=== PATIENT | male | born 2000 | race Hispanic/Latino ===

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

== ENCOUNTER 2022-03-21 14:16 | Emergency (ER) | payer OTHER ==
[2022-03-21 15:45] LABS: SARS-COV-2 RT PCR NEGATIVE (NEGATIVE)
--- NOTE | 2022-03-21 15:49 | EDPHYS ---
Physician Documentation [facility] Name: Tobias Isabel Age: 21 yrs Sex: Male : 2000 Arrival Date: 03/21/2022 Time: 14:21 Bed IW1 Private MD: ED Physician Abhishek Gay HPI: 03/21 15:29 This 21 yrs old Male presents to ER via Ambulatory with complaints of COVID kb Symptoms. 15:29 The patient or guardian reports cough, that is intermittent, described as mild. Onset: kb The symptoms/episode began/occurred 3 day(s) ago. Severity of symptoms: At their worst the symptoms were mild, in the emergency department the symptoms are unchanged. Modifying factors: The symptoms are alleviated by nothing, the symptoms are aggravated by nothing. Associated signs and symptoms: Pertinent positives: rhinorrhea. The patient has not experienced similar symptoms in the past. The patient has not recently seen a physician. Pt reports cough and congestion for 3 days. 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 . Historical: - Allergies: 14:29 No Known Allergies; kb3 - Home Meds: 14:29 None [Active]; kb3 - PMHx: 14:29 ADD/ADHD; kb3 - PSHx: 14:29 None; kb3 - Immunization history:: Adult Immunizations up to date, Client reports having NOT received the Covid vaccine. Last tetanus immunization: up to date. - Social history:: Smoking status: Patient denies any tobacco usage or history of. Patient uses street drugs, marijuana. ROS: 15:27 Constitutional: Negative for fever, chills, and weight loss. kb 15:27 ENT: Positive for rhinorrhea, sinus congestion. 15:27 Respiratory: Positive for cough. 15:27 All other systems are negative. Exam: 15:28 Constitutional: This is a well developed, well nourished patient who is awake, alert, kb and in no acute distress. Head/Face: Normocephalic, atraumatic. ENT: Moist Mucous membranes Cardiovascular: Regular rate and rhythm with a normal S1 and S2. No gallops, murmurs, or rubs. No pulse deficits. Respiratory: Respirations even and unlabored. No increased work of breathing. Talking in full sentences Abdomen/GI: Soft, non-tender. No distention Skin: Warm, dry with normal turgor. Normal color. MS/ Extremity: Pulses equal, no cyanosis. Neurovascular intact. Full, normal range of motion. Neuro: Awake and alert, GCS 15, oriented to person, place, time, and situation. Moves all extremities. Normal gait. Psych: Awake, alert, with orientation to person, place and time. Behavior, mood, and affect are within normal limits. Vital Signs: 14:26 BP 123 / 74; Pulse 70; Resp 18; Temp 98.8; Weight 63.5 kg; Height 5 ft. 11 in. (180.34 kb3 cm); Pain 0/10; 14:26 Body Mass Index 19.53 (63.50 kg, 180.34 cm) kb3 MDM: 14:25 Patient medically screened. kb 15:28 Data reviewed: vital signs, nurses notes. Data interpreted: Pulse oximetry: on room air kb is 100 %. Interpretation: normal. 15:48 Counseling: I had a detailed discussion with the patient and/or guardian regarding: the kb historical points, exam findings, and any diagnostic results supporting the discharge/admit diagnosis, lab results, the need for outpatient follow up, a family practitioner, to return to the emergency department if symptoms worsen or persist or if there are any questions or concerns that arise at home. 03/21 14:28 Order name: COVID-19/FLU A+B/RSV; Complete Time: 15:48 kb Administered Medications: No medications were administered Disposition: 17:54 Co-signature as Attending Physician, Abhishek Gay MD. rn Disposition Summary: 03/21/22 15:48 Discharge Ordered Location: Home kb Condition: Stable kb Diagnosis - Acute upper respiratory infection, unspecified kb Followup: kb - With: Emergency Department - When: As needed - Reason: Worsening of condition Followup: kb - With: Private Physician - When: 2 - 3 days - Reason: Recheck today's complaints, Continuance of care, Re-evaluation by your physician Discharge Instructions: - Discharge Summary Sheet kb - Upper Respiratory Infection, Adult, [id number] kb - Viral Respiratory Infection, Ezdl-[id number] kb Forms: - Medication Reconciliation Form kb - Thank You Letter kb - Antibiotic Education kb - Prescription Opioid Use kb - Work release form kb3 Signatures: Dispatcher [employer] EDAdrianna Alvarado FNP-C GEM CARVER-Ckb Abhishek Gay MD MD rn Gemini Cheney RN RN kb3
--- NOTE | 2022-03-21 15:49 | ER ---
Nurse's Notes [facility] Name: Tobias Isabel Age: 21 yrs Sex: Male : 2000 Arrival Date: 03/21/2022 Time: 14:21 Bed IW1 Private MD: Diagnosis: Acute upper respiratory infection, unspecified Presentation: 03/21 14:26 Chief complaint: Patient states: Runny nose, congestion, cough x2-3 days. Coronavirus kb3 screen: Vaccine status: Patient reports being unvaccinated. Client denies travel out of the [place] in the last 14 days. Ebola Screen: Patient negative for fever greater than or equal to 101.5 degrees Fahrenheit, and additional compatible Ebola Virus Disease symptoms Patient denies exposure to infectious person. Patient denies travel to an Ebola-affected area in the 21 days before illness onset. Initial Sepsis Screen: Does the patient meet any 2 criteria? No. Patient's initial sepsis screen is negative. Does the patient have a suspected source of infection? No. Patient's initial sepsis screen is negative. Risk Assessment: Do you want to hurt yourself or someone else? Patient reports no desire to harm self or others. Onset of symptoms was March 19, 2022. 14:26 Method Of Arrival: Ambulatory kb3 14:26 Acuity: MYRNA 4 kb3 Triage Assessment: 14:29 General: Appears in no apparent distress. Behavior is calm, cooperative. Pain: Denies kb3 pain. Historical: - Allergies: 14:29 No Known Allergies; kb3 - Home Meds: 14:29 None [Active]; kb3 - PMHx: 14:29 ADD/ADHD; kb3 - PSHx: 14:29 None; kb3 - Immunization history:: Adult Immunizations up to date, Client reports having NOT received the Covid vaccine. Last tetanus immunization: up to date. - Social history:: Smoking status: Patient denies any tobacco usage or history of. Patient uses street drugs, marijuana. Screenin:30 [facility] ED Fall Risk Assessment (Adult) History of falling in the last 3 months, kb3 including since admission No falls in past 3 months (0 pts) Confusion or Disorientation No (0 pts) Intoxicated or Sedated No (0 pts) Impaired Gait No (0 pts) Mobility Assist Device Used No (0 pt) Altered Elimination No (0 pt) Score/Fall Risk Level 0 - 2 = Low Risk Oriented to surroundings, Maintained a safe environment, Educated pt \T\ family on fall prevention, incl call for assistance when getting out of bed, Assessed \T\ reinforced patient's understanding of fall precautions, Provided non-skid footwear, Hourly rounding (assess needs \T\ fall precautionary measures) done, Used ambulatory aids as needed (educated on \T\ assisted with), Used gait belt as appropriate. Abuse screen: Denies threats or abuse. Denies injuries from another. Nutritional screening: No deficits noted. Tuberculosis screening: No symptoms or risk factors identified. Assessment: 14:30 General: see triage note. kb3 14:30 Respiratory: Airway is patent Respiratory effort is even, unlabored, Breath sounds are kb3 clear bilaterally. Vital Signs: 14:26 BP 123 / 74; Pulse 70; Resp 18; Temp 98.8; Weight 63.5 kg; Height 5 ft. 11 in. (180.34 kb3 cm); Pain 0/10; 14:26 Body Mass Index 19.53 (63.50 kg, 180.34 cm) kb3 ED Course: 14:21 Patient arrived in ED. [email or web address] 14:25 Adrianna Alston FNP-C [facility]. kb 14:25 Abhishek Gay MD is Attending Physician. kb 14:28 Triage completed. kb3 14:29 Arm band placed on right wrist. kb3 14:30 Patient has correct armband on for positive identification. kb3 14:30 No provider procedures requiring assistance completed. Patient did not have IV access kb3 during this emergency room visit. 14:31 Columba Landry, RN is Primary Nurse. ph Administered Medications: No medications were administered Medication: 14:30 VIS not applicable for this client. kb3 Outcome: 15:48 Discharge ordered by . kb 16:05 Discharged to home ambulatory. kb3 16:05 Condition: stable 16:05 Discharge instructions given to patient, Instructed on discharge instructions, follow up and referral plans. medication usage, Demonstrated understanding of instructions, follow-up care, medications. 16:05 Patient left the ED. kb3 Signatures: Adrianna Alston FNP-C [employer] SALES REPRESENTATIVE-Columba Butcher RN RN ph Sonali Meade jj6 Shravan, Gemini, RN RN kb3
[2022-03-21 16:10] VITALS: BP 123/74; TEMP 98.8
== END 2022-03-21 16:05 | disposition home or self-care (01) ==
LOC: ER 14:16
DX: J06.9 Acute upper respiratory infection, unspecified (principal); Z20.822 Contact with and (suspected) exposure to COVID-19
CPT/HCPCS: 0241U; 99281

== ENCOUNTER 2022-03-30 13:10 | Emergency (ER) | payer OTHER ==
--- NOTE | 2022-03-30 14:04 | RAD REPORT ---
EXAM DESCRIPTION: RAD - Foot Left 3 View - 03/30/2022 1:51 pm CLINICAL HISTORY: PAIN COMPARISON: No comparisons FINDINGS: Soft tissue swelling affects the great toe. No evidence of fracture or dislocation.
[2022-03-30] MEDS ORDERED: IBUPROFEN 200 MG TAB PO ONE (14:09)
--- NOTE | 2022-03-30 14:28 | ER ---
Nurse's Notes [facility] Name: Tobias Isabel Age: 21 yrs Sex: Male : 2000 Arrival Date: 03/30/2022 Time: 13:12 Bed DIS3 Private MD: Diagnosis: Contusion of left foot;Pain in left foot Presentation: 03/30 13:18 Chief complaint: Patient states: a bar slammed on his left foot at work about 2 days iw ago , now it's swollen and painful. Coronavirus screen: At this time, the client does not indicate any symptoms associated with coronavirus-19. Ebola Screen: Patient negative for fever greater than or equal to 101.5 degrees Fahrenheit, and additional compatible Ebola Virus Disease symptoms Patient denies exposure to infectious person. Patient denies travel to an Ebola-affected area in the 21 days before illness onset. No symptoms or risks identified at this time. Initial Sepsis Screen: Does the patient meet any 2 criteria? No. Patient's initial sepsis screen is negative. Does the patient have a suspected source of infection? No. Patient's initial sepsis screen is negative. Risk Assessment: Do you want to hurt yourself or someone else? Patient reports no desire to harm self or others. Onset of symptoms was March 28, 2022. 13:18 Method Of Arrival: Ambulatory iw 13:18 Acuity: MYRNA 4 iw Historical: - Allergies: 13:19 No Known Allergies; iw - Home Meds: 13:19 None [Active]; iw - PMHx: 13:19 ADD/ADHD; iw - PSHx: 13:19 None; iw - Social history:: Smoking status: Patient reports the use of cigarette tobacco products, denies chronic smoking, but will smoke occasionally, Patient uses street drugs, marijuana. - Family history:: not pertinent. Screenin:42 [facility] ED Fall Risk Assessment (Adult) History of falling in the last 3 months, ss including since admission No falls in past 3 months (0 pts). Abuse screen: Denies threats or abuse. Denies injuries from another. Nutritional screening: No deficits noted. Tuberculosis screening: Never had TB. Assessment: 14:42 General: Appears in no apparent distress. comfortable, Pt is laughing with friend. ss Behavior is calm, cooperative. Pain: Quality of pain is described as tender, Pain began suddenly, Is continuous. Neuro: Level of Consciousness is awake, alert, obeys commands. Musculoskeletal: Circulation, motion, and sensation intact. Range of motion: intact in all extremities. Vital Signs: 13:18 BP 133 / 67; Pulse 71; Resp 16; Temp 98.2; Pulse Ox 100% on R/A; iw ED Course: 13:12 Patient arrived in ED. rg4 13:19 Triage completed. iw 13:19 Arm band placed on. iw 13:21 Collin Melendez MD is Attending Physician. [facility] 13:53 Foot Left 3 View XRAY In Process Unspecified. EDHI 14:02 Jailene Fernandez, RN is Primary Nurse. ss 14:26 Lizandro Davidson MD is Referral Physician. [facility] 14:40 No provider procedures requiring assistance completed. Patient did not have IV access ss during this emergency room visit. Ortho shoe applied to left foot. 14:42 Patient has correct armband on for positive identification. Bed in low position. ss Administered Medications: 14:15 Drug: Motrin (ibuprofen) 600 mg Route: PO; ss 14:35 Follow up: Response: No adverse reaction; Medication administered at discharge. ss Medication: 14:42 VIS not applicable for this client. ss Outcome: 14:27 Discharge ordered by . [facility] 14:40 Discharged to home ambulatory, with friend. 14:40 Condition: good 14:40 Discharge instructions given to patient, friend, Instructed on discharge instructions, follow up and referral plans. medication usage, Demonstrated understanding of instructions, follow-up care, medications, Prescriptions given X 1. 14:44 Patient left the ED. ss Signatures: Dispatcher [employer] EDHI Collin Melendez MD MD cha Williams, Irene, RN RN Jailene Fernandez, Irena Akers RN rg4
--- NOTE | 2022-03-30 14:28 | EDPHYS ---
Physician Documentation [facility] Name: Tobias Isabel Age: 21 yrs Sex: Male : 2000 Arrival Date: 03/30/2022 Time: 13:12 Bed DIS3 Private MD: ED Physician Collin Melendez HPI: 03/30 14:13 This 21 yrs old Male presents to ER via Ambulatory with complaints of Foot pranay Injury. 14:13 The patient presents with decreased range of motion, pain, that is acute. The pranay complaints affect the left foot. Context: The problem was sustained at work. Onset: The symptoms/episode began/occurred 1 day(s) ago. Modifying factors: The symptoms are alleviated by elevation of extremity, ice packs, the symptoms are aggravated by weight bearing, movement. Associated signs and symptoms: The patient has no apparent associated signs or symptoms. Severity of symptoms: At their worst the symptoms were mild, in the emergency department the symptoms are unchanged. The patient has not experienced similar symptoms in the past. Historical: - Allergies: 13:19 No Known Allergies; iw - Home Meds: 13:19 None [Active]; iw - PMHx: 13:19 ADD/ADHD; iw - PSHx: 13:19 None; iw - Social history:: Smoking status: Patient reports the use of cigarette tobacco products, denies chronic smoking, but will smoke occasionally, Patient uses street drugs, marijuana. - Family history:: not pertinent. ROS: 14:13 Constitutional: Negative for fever, chills, and weight loss, Eyes: Negative for injury, pranay pain, redness, and discharge, ENT: Negative for injury, pain, and discharge, Neck: Negative for injury, pain, and swelling, Cardiovascular: Negative for chest pain, palpitations, and edema, Respiratory: Negative for shortness of breath, cough, wheezing, and pleuritic chest pain, Abdomen/GI: Negative for abdominal pain, nausea, vomiting, diarrhea, and constipation, Back: Negative for injury and pain, : Negative for injury, bleeding, discharge, and swelling, Skin: Negative for injury, rash, and discoloration, Neuro: Negative for headache, weakness, numbness, tingling, and seizure, Psych: Negative for depression, anxiety, suicide ideation, homicidal ideation, and hallucinations, Allergy/Immunology: Negative for hives, rash, and allergies, Endocrine: Negative for neck swelling, polydipsia, polyuria, polyphagia, and marked weight changes, Hematologic/Lymphatic: Negative for swollen nodes, abnormal bleeding, and unusual bruising. 14:13 MS/extremity: Positive for decreased range of motion, pain, tenderness. Exam: 14:13 Constitutional: This is a well developed, well nourished patient who is awake, alert, pranay and in no acute distress. Head/Face: Normocephalic, atraumatic. Eyes: Pupils equal round and reactive to light, extra-ocular motions intact. Lids and lashes normal. Conjunctiva and sclera are non-icteric and not injected. Cornea within normal limits. Periorbital areas with no swelling, redness, or edema. ENT: Nares patent. No nasal discharge, no septal abnormalities noted. Tympanic membranes are normal and external auditory canals are clear. Oropharynx with no redness, swelling, or masses, exudates, or evidence of obstruction, uvula midline. Mucous membranes moist. Neck: Trachea midline, no thyromegaly or masses palpated, and no cervical lymphadenopathy. Supple, full range of motion without nuchal rigidity, or vertebral point tenderness. No Meningismus. Chest/axilla: Normal chest wall appearance and motion. Nontender with no deformity. No lesions are appreciated. Cardiovascular: Regular rate and rhythm with a normal S1 and S2. No gallops, murmurs, or rubs. Normal PMI, no JVD. No pulse deficits. Respiratory: Lungs have equal breath sounds bilaterally, clear to auscultation and percussion. No rales, rhonchi or wheezes noted. No increased work of breathing, no retractions or nasal flaring. Abdomen/GI: Soft, non-tender, with normal bowel sounds. No distension or tympany. No guarding or rebound. No evidence of tenderness throughout. Back: No spinal tenderness. No costovertebral tenderness. Full range of motion. Male : Normal genitalia with no discharge or lesions. Skin: Warm, dry with normal turgor. Normal color with no rashes, no lesions, and no evidence of cellulitis. Neuro: Awake and alert, GCS 15, oriented to person, place, time, and situation. Cranial nerves II-XII grossly intact. Motor strength 5/5 in all extremities. Sensory grossly intact. Cerebellar exam normal. Normal gait. Psych: Awake, alert, with orientation to person, place and time. Behavior, mood, and affect are within normal limits. 14:13 Musculoskeletal/extremity: ROM: intact in all extremities, full active range of motion, full passive range of motion, in the dorsum of left foot. Vital Signs: 13:18 BP 133 / 67; Pulse 71; Resp 16; Temp 98.2; Pulse Ox 100% on R/A; iw MDM: 13:21 Patient medically screened. [facility] 14:23 Differential diagnosis: fracture, sprain, arthritis, gout. Data reviewed: vital signs, [facility] nurses notes, radiologic studies, plain films. Consideration of Admission/Observation Patient was admitted/placed on observation. Escalation of care including admission/observation considered. Management of patient was discussed with the following: Primary Care Provider: PCP. I considered the following discharge prescriptions or medication management in the emergency department Medications were administered in the Emergency Department. See MAR. Independent interpretation of the following test(s) in the Emergency Department X-Ray: My interpretation is FOOT. Discussion of test interpretation with radiology: I had a discussion with radiology regarding a test interpretation. NO FX. Test considered but Not performed: MRI: CT/MRI. 03/30 13:21 Order name: Foot Left 3 View XRAY [facility] 03/30 13:21 Order name: Ice pack; Complete Time: 14:15 [facility] 03/30 14:13 Order name: Post-op shoe; Complete Time: 14:20 [facility] Administered Medications: 14:15 Drug: Motrin (ibuprofen) 600 mg Route: PO; 14:35 Follow up: Response: No adverse reaction; Medication administered at discharge. Disposition Summary: 03/30/22 14:27 Discharge Ordered Location: Home pranay Problem: new pranay Symptoms: have improved pranay Condition: Stable pranay Diagnosis - Contusion of left foot pranay - Pain in left foot pranay Followup: pranay - With: Private Physician - When: 2 - 3 days - Reason: Recheck today's complaints, Continuance of care, Re-evaluation by your physician Followup: pranay - With: Lizandro Davidson MD - When: 2 - 3 days - Reason: Recheck today's complaints, Continuance of care, Re-evaluation by your physician Discharge Instructions: - Musculoskeletal Pain pranay - How to Use Cold Therapy, [id number] pranay - Discharge Summary Sheet ss - Foot Pain pranay Forms: - Medication Reconciliation Form pranay - Work release form ss - Thank You Letter pranay - Antibiotic Education pranay - Prescription Opioid Use pranay Prescriptions: - Diclofenac Sodium 75 mg Oral tablet,delayed release (DR/EC) - take 1 tablet by ORAL route 2 times per day; 20 tablet; Refills: 0, Product pranay Selection Permitted Signatures: Dispatcher [employer] Collin Oneal MD MD cha Williams, Irene, RN RN Jailene Fernandez RN RN ss
[2022-03-30 15:17] VITALS: BP 133/67; TEMP 98.2; O2SAT 100
== END 2022-03-30 14:44 | disposition home or self-care (01) ==
LOC: ER 13:10
DX: S90.32XA Contusion of left foot, initial encounter (principal); F17.210 Nicotine dependence, cigarettes, uncomplicated
CPT/HCPCS: 99284

== ENCOUNTER 2022-07-23 16:17 | Emergency (ER) | payer OTHER ==
--- NOTE | 2022-07-23 16:31 | EDPHYS ---
Physician Documentation [facility] Name: Tobias Isabel Age: 22 yrs Sex: Male : 2000 Arrival Date: 07/23/2022 Time: 16:17 Bed DIS4 Private MD: ED Physician Abhishek Gay HPI: 07/23 16:25 This 22 yrs old Male presents to ER via Unassigned with complaints of Eye rn Swelling, Redness of Eye. 16:25 Onset: The symptoms/episode began/occurred today. Duration: the symptoms are rn continuous. Aggravated by nothing. Alleviated by nothing. Patient does not utilize any form of vision correction. Severity of symptoms: At their worst the symptoms were mild in the emergency department the symptoms are unchanged. The patient has not experienced similar symptoms in the past. Pt reports woke up with red left eye, now right eye a little red, left eye drainage. NO trauma. No possible foreign body, no sick contacts. No vision changes. No pain. . Historical: - Allergies: 16:43 No Known Allergies; iw - PMHx: 16:43 ADD/ADHD; iw - Family history:: not pertinent. - Hospitalizations: : No recent hospitalization is reported. ROS: 16:25 Constitutional: Negative for fever, chills, and weight loss, Eyes: Negative for injury, rn + for redness and drainage Cardiovascular: Negative for chest pain, palpitations, and edema, Skin: Negative for injury, rash, and discoloration, Neuro: Negative for headache, weakness, numbness, tingling, and seizure. Exam: 16:25 Constitutional: This is a well developed, well nourished patient who is awake, alert, rn and in no acute distress. Head/Face: Normocephalic, atraumatic. Eyes: + bilateral conjunctival erythema and clear drainage, no hypopyon, no hyphema, no foreign body identified with lids everted as well. Vital Signs: 16:44 BP 128 / 60; Pulse 89; Resp 16; Temp 98; Pulse Ox 98% on R/A; iw MDM: 16:20 Patient medically screened. rn 16:25 Differential diagnosis: Data reviewed: vital signs, nurses notes, and as a result, I rn will discharge patient. Counseling: I had a detailed discussion with the patient and/or guardian regarding: the historical points, exam findings, and any diagnostic results supporting the discharge/admit diagnosis, the need for outpatient follow up, to return to the emergency department if symptoms worsen or persist or if there are any questions or concerns that arise at home. Special discussion: I discussed with the patient/guardian in detail that at this point there is no indication for admission to the hospital. It is understood, however, that if the symptoms persist or worsen the patient needs to return immediately for re-evaluation. Administered Medications: No medications were administered Disposition Summary: 07/23/22 16:30 Discharge Ordered Location: Home rn Problem: new rn Symptoms: are unchanged rn Condition: Stable rn Diagnosis - Unspecified conjunctivitis rn Followup: rn - With: Private Physician - When: As needed - Reason: Recheck today's complaints, Re-evaluation by your physician Discharge Instructions: - Discharge Summary Sheet rn - Bacterial Conjunctivitis, Adult rn Forms: - Medication Reconciliation Form rn - Thank You Letter rn - Antibiotic ornamenter hand - Prescription Opioid Use rn - Work release form eb Prescriptions: - Vigamox 0.5 % Ophthalmic Drops - instill 1 drop by OPHTHALMIC route every 8 hours for 7 days; 5 milliliter; rn Refills: 0, Product Selection Permitted Signatures: Roslyn Francois RN RN iw Abhishek Gay MD MD heater furnace: (The following items were deleted from the chart) 16:28 16:25 Constitutional: Negative for fever, chills, and weight loss, Eyes: Negative for rn injury, + for redness and drainage Cardiovascular: Negative for chest pain, palpitations, and edema, Neuro: Negative for headache, weakness, numbness, tingling, and seizure, rn
--- NOTE | 2022-07-23 17:16 | ER ---
Nurse's Notes [facility] Name: Tobias Isabel Age: 22 yrs Sex: Male : 2000 Arrival Date: 07/23/2022 Time: 16:17 Bed DIS4 Private MD: Diagnosis: Unspecified conjunctivitis Presentation: 07/23 16:42 Chief complaint: Patient states: viviana eye redness, itching since yesterday. Coronavirus iw screen: At this time, the client does not indicate any symptoms associated with coronavirus-19. Ebola Screen: Patient negative for fever greater than or equal to 101.5 degrees Fahrenheit, and additional compatible Ebola Virus Disease symptoms Patient denies exposure to infectious person. Patient denies travel to an Ebola-affected area in the 21 days before illness onset. No symptoms or risks identified at this time. Initial Sepsis Screen: Does the patient meet any 2 criteria? No. Patient's initial sepsis screen is negative. Does the patient have a suspected source of infection? No. Patient's initial sepsis screen is negative. Risk Assessment: Do you want to hurt yourself or someone else? Patient reports no desire to harm self or others. Onset of symptoms was July 22, 2022. 16:42 Method Of Arrival: Ambulatory iw 16:42 Acuity: MYRNA 4 iw Historical: - Allergies: 16:43 No Known Allergies; iw - PMHx: 16:43 ADD/ADHD; iw - Family history:: not pertinent. - Hospitalizations: : No recent hospitalization is reported. Vital Signs: 16:44 BP 128 / 60; Pulse 89; Resp 16; Temp 98; Pulse Ox 98% on R/A; iw ED Course: 16:18 Patient arrived in ED. am2 16:20 Abhishek Gay MD is Attending Physician. rn 16:42 Roslyn Francois, DIMITRI is Primary Nurse. iw 16:43 Triage completed. iw 16:43 Arm band placed on. iw Administered Medications: No medications were administered Outcome: 16:30 Discharge ordered by MD. rn 17:16 Discharged to home ambulatory. iw 17:16 Condition: good 17:16 Discharge instructions given to patient, Instructed on discharge instructions, follow up and referral plans. medication usage, Demonstrated understanding of instructions, follow-up care, medications, Prescriptions given X 1. 17:16 Patient left the ED. iw Signatures: Roslyn Francois DIMITRI RN Abhishek Khan MD MD rn Moreno, Amanda am2
[2022-07-23 17:33] VITALS: BP 128/60; TEMP 98; O2SAT 98
== END 2022-07-23 17:16 | disposition home or self-care (01) ==
LOC: ER 16:17
DX: H10.9 Unspecified conjunctivitis (principal)
CPT/HCPCS: 99283

== ENCOUNTER 2022-11-10 15:16 | Emergency (ER) | payer OTHER ==
--- OUTSIDE RECORDS SUMMARY | 2022-11-10 15:20 | XMS REPORT | Continuity of Care Document ---
:2000 Author Organization [facility] t Address [address] [place] [address] [place] [id number] Care Team Providers Name Role Phone TANK MICHAEL Primary Care Physician Unavailable NATHALIE KOWALSKI Attending Clinician Unavailable Nathalie Hernandez Attending Clinician JUAN LUIS MOE Attending Clinician Unavailable Juan Luis Moe MD Attending Clinician GARY LEVIN Attending Clinician Unavailable Gary Levin MD Attending Clinician LUCAS PURI Attending Clinician Unavailable Lucas Lobo Attending Clinician NATHALIE KOWALSKI Admitting Clinician Unavailable GARY LEVIN Admitting Clinician Unavailable Payers Payer Name Policy Type Policy Number Effective Date Expiration Date S [place] [employer] [id number] 2022 KIDS 00:00:00 Problems Condition Condition Condition Status Onset Resolution Last Treating Co mments Source Name Details Category Date Date Treatment Clinician Date Attention Attention Disease Active Uni vers deficit deficit 4-22 ity of disorder disorder 00:00: [place] (ADD), (ADD), 00 Medical child, child, Branch with with hyperactiv hyperactiv ity ity Depression Depression Disease Active 2014-03 U nivers 2-18 ity of 00:00: [place] 00 Medical Branch Allergies, Adverse Reactions, Alerts Allergy Allergy Status Severity Reaction(s) Onset Inactive Treating Comm ents Source Name Type Date Date Clinician NO KNOWN Drug Active Univers ALLERGIE Class ity of S [facility] Social History Social Habit Start Date Stop Date Quantity Comments Source Alcohol intake 2022-08-29 2022-08-29 Current University of 00:00:00 00:00:00 non-drinker of [facility] alcohol (finding) Branch Exposure to 2022-07-29 2022-08-08 Not sure University SARS-CoV-2 00:00:00 21:15:00 [facility] (event) Branch Tobacco use and 2013-01-06 2013-01-06 Smokeless tobacco Un iversity of exposure 00:00:00 00:00:00 non-user [facility] Tobacco Comment 2013-01-06 2013-01-06 Denies smoking Unive rsity of 00:00:00 00:00:00 exposure [facility] Sex Assigned At [birth year] Universit y of 00:00:00 00:00:00 [facility] Smoking Status Start Date Stop Date Source Never smoked tobacco [facility] Medications Ordered Filled Start Stop Current Ordering Indication Dosage Frequency Signature Comments Components Source Medication Medication Date Date Medication? Clinician (SIG) Name Name albuterol Yes [id number] 2{puff} Inhale 2 Univers 90 6-10 Puffs ity of mcg/actuati 00:00: every 4 [place] on inhaler 00 (four) Medical hours as Branch needed for Wheezing or Shortness of Breath. benzonatate Yes [id number] 100mg Take 1 Univers 100 mg 6-10 capsule by ity of capsule 00:00: mouth 3 [place] 00 (three) Medical times Branch daily as needed for Cough. azithromyci Yes [id number] 250mg Take 1 Univers n 250 mg 6-10 tablet by ity of tablet 00:00: mouth in [place] 00 the Medical morning. Branch methylPREDN Yes [id number] Take by Univers ISolone 6-10 mouth ity of (MEDROL, 00:00: SEE-INSTRU [place] as KARY,) 4 mg 00 CTIONS. Medica l tablets follow Branch package directions simethicone Yes 80mg 80 mg, Univ ers (GAS RELIEF - Oral, ity of (SIMETHICON 14:00: [place] 00 First dose Medical chewable on Sun Branch tablet 80 08/09/22 at mg 0900, Until Discontinu ed, [place] dicyclomine 2022- No 20mg 20 mg, Uni vers (BENTYL) 08-09 Oral, ity of tablet 20 05:00: 04:59 ONCE, 1 [place] mg [place] :00 dose, On Medical Sun Branch 08/09/22 at 0000, [place] iopamidol 2022-0 2022- No [id number] 100mL 100 mL, Univers (ISOVUE 08-09 Intravenou ity o f 370-500 mL) 04:45: 04:45 s, ONCE, 1 [place] injection 00 :00 dose, On Medica l 100 mL Sat Branch 08/08/22 at 2345, Routine maalox:diph 2022- No 15mL 15 mL, Uni vers enhydrAMINE 08-09 Oral, ity of :lidocaine 04:30: 04:25 ONCE, 1 [place] as 2 % viscous 00 :00 dose, On Medi jos 1:1:1 Sat Branch (FIRST-MOUT 08/08/22 at [facility]) 2330, [place] oral suspension 15 mL NaCl 0.9% 2022- No 1000mL at 999 Uni vers (NS) bolus 08-09 mL/hr, ity of infusion 03:45: 04:59 1,000 mL, [place] as 1,000 mL 00 :00 IV Medical Infusion, Branch ONCE, 1 dose, On 08/08/22 at 2245, STAT ondansetron 2022- No 4mg 4 mg, Slow Univers (ZOFRAN 08-09 IV Push, ity of (PF)) 03:45: 03:32 ONCE, 1 [place] injection 4 00 :00 dose, On Medi jos mg Sat Branch 08/08/22 at 2245, [place] simethicone 2022-0 Yes [id number] 80mg Take 1 Univers 80 mg 5-20 tablet by ity of chewable 00:00: mouth [place] tablet 00 after Medical meals and Branch at bedtime. dicyclomine 2022-0 Yes [id number] 20mg Take 1 Univers 20 mg 5-20 tablet by ity of tablet 00:00: mouth 4 [place] 00 (four) Medical times Branch daily. ondansetron 2023-0 Yes [id number] 4mg Take 1 Univers 4 mg 5-20 tablet by ity of disintegrat 00:00: mouth [place] ing tablet 00 every 4 Medica l (four) Branch hours as needed for Nausea and Vomiting (N/V). famotidine 2023-0 Yes [id number] 20mg Take 1 U nivers 20 mg 5-20 tablet by ity of tablet 00:00: mouth in [place] 00 the Medical morning Branch and 1 tablet in the evening. simethicone 2023-0 Yes [id number] 80mg Take 1 Univers 80 mg 5-20 tablet by ity of chewable 00:00: mouth [place] tablet 00 after Medical meals and Branch at bedtime. dicyclomine 2023-0 Yes [id number] 20mg Take 1 Univers 20 mg 5-20 tablet by ity of tablet 00:00: mouth 4 [place] 00 (four) Medical times Branch daily. ondansetron 2023-0 Yes [id number] 4mg Take 1 Univers 4 mg 5-20 tablet by ity of disintegrat 00:00: mouth [place] ing tablet 00 every 4 Medica l (four) Branch hours as needed for Nausea and Vomiting (N/V). famotidine 2023-0 Yes [id number] 20mg Take 1 U nivers 20 mg 5-20 tablet by ity of tablet 00:00: mouth in [place] the Medical morning Branch and 1 tablet in the evening. simethicone 2023-0 Yes [id number] 80mg Take 1 Univers 80 mg 5-20 tablet by ity of chewable 00:00: mouth [place] tablet 00 after Medical meals and Branch at bedtime. dicyclomine 2023-0 Yes [id number] 20mg Take 1 Univers 20 mg 5-20 tablet by ity of tablet 00:00: mouth 4 [place] 00 (four) Medical times Branch daily. ondansetron 2023-0 Yes [id number] 4mg Take 1 Univers 4 mg 5-20 tablet by ity of disintegrat 00:00: mouth [place] ing tablet 00 every 4 Medica l (four) Branch hours as needed for Nausea and Vomiting (N/V). famotidine 2023-0 Yes [id number] 20mg Take 1 U nivers 20 mg 5-20 tablet by ity of tablet 00:00: mouth in [place] 00 the Medical morning Branch and 1 tablet in the evening. guanFACINE 2017-0 Yes 2mg Take 1 Unive rs ER (INTUNIV 4-15 tablet by ity of ER) 2 mg 00:00: mouth at [place] tablet 00 bedtime. Medical Branch guanFACINE 2017-0 Yes 2mg Take 1 Unive rs ER (INTUNIV 4-15 tablet by ity of ER) 2 mg 00:00: mouth at [place] tablet 00 bedtime. Medical Branch guanFACINE 2016-0 Yes 2mg Take 1 Unive rs ER (INTUNIV 4-15 tablet by ity of ER) 2 mg 00:00: mouth at [place] tablet 00 bedtime. Medical Branch guanFACINE 0 Yes 2mg Take 1 Unive rs ER (INTUNIV 4-15 tablet by ity of ER) 2 mg 00:00: mouth at [place] tablet 00 bedtime. Medical Branch lisdexamfet 2016- Yes 40mg Take 1 Univ ers amine 4-13 capsule by ity of (VYVANSE) 00:00: mouth [place] 40 mg 00 every Medical capsule morning. Branch lisdexamfet 2016-0 Yes 40mg Take 1 Univ ers amine 4-13 capsule by ity of (VYVANSE) 00:00: mouth [place] 40 mg 00 every Medical capsule morning. Branch lisdexamfet 2016-0 Yes 40mg Take 1 Univ ers amine 4-13 capsule by ity of (VYVANSE) 00:00: mouth [place] 40 mg 00 every Medical capsule morning. Branch lisdexamfet 0 Yes 40mg Take 1 Univ ers amine 4-13 capsule by ity of (VYVANSE) 00:00: mouth [place] 40 mg 00 every Medical capsule morning. Branch FLUoxetine Yes [id number] 20mg Take 1 U nivers (PROZAC) 20 8-31 tablet by ity of mg tablet 00:00: mouth [place] 00 daily. Medical Branch FLUoxetine 2015-0 Yes [id number] 20mg Take 1 U nivers (PROZAC) 20 8-31 tablet by ity of mg tablet 00:00: mouth [place] 00 daily. Medical Branch FLUoxetine 0 Yes [id number] 20mg Take 1 U nivers (PROZAC) 20 8-31 tablet by ity of mg tablet 00:00: mouth [place] 00 daily. Medical Branch FLUoxetine Yes [id number] 20mg Take 1 U nivers (PROZAC) 20 8-31 tablet by ity of mg tablet 00:00: mouth [place] [id number] daily. [facility] Immunizations Ordered Immunization Filled Immunization Date Status Commen ts Source Name Name HPV9 2016-04-02 Completed University of 00:00:00 [facility] Influenza Virus 2016-04-02 Completed Universit y of Vaccine Quad IM 3+ 00:00:00 [facility] HPV9 2016-04-02 Completed University of 00:00:00 [facility] Influenza Virus 2016-04-02 Completed Universit y of Vaccine Quad IM 3+ 00:00:00 [facility] HPV9 2016-04-02 Completed University of 00:00:00 [facility] Influenza Virus 2016-04-02 Completed Universit y of Vaccine Quad IM 3+ 00:00:00 [facility] HPV9 2016-04-02 Completed University of 00:00:00 [facility] Influenza Virus 2016-04-02 Completed Universit y of Vaccine Quad IM 3+ 00:00:00 [facility] HPV9 2015-11-20 Completed University of 00:00:00 [facility] HPV9 2015-11-20 Completed University of 00:00:00 [facility] HPV9 2015-11-20 Completed University of 00:00:00 [facility] HPV9 2015-11-20 Completed University of 00:00:00 [facility] HPV9 2015-09-19 Completed University of 00:00:00 [facility] HPV9 2015-09-19 Completed University of 00:00:00 [facility] HPV9 2015-09-19 Completed University of 00:00:00 [facility] HPV9 2015-09-19 Completed University of 00:00:00 [facility] Meningococcal 2014-11-06 Completed University of Vaccine 00:00:00 [facility] TDAP 2014-11-06 Completed University of 00:00:00 [facility] Meningococcal 2014-11-06 Completed University of Vaccine 00:00:00 [facility] TDAP 2014-11-06 Completed University of 00:00:00 [facility] Meningococcal 2014-11-06 Completed University of Vaccine 00:00:00 [facility] TDAP 2014-11-06 Completed University of 00:00:00 [facility] Meningococcal 2014-11-06 Completed University of Vaccine 00:00:00 [facility] TDAP 2014-11-06 Completed University of 00:00:00 [facility] Influenza Virus 2014-05-21 Completed Universit y of Vaccine Quad IM 3+ 00:00:00 [facility] Influenza Virus 2014-05-21 Completed Universit y of Vaccine Quad IM 3+ 00:00:00 [facility] Influenza Virus 2014-05-21 Completed Universit y of Vaccine Quad IM 3+ 00:00:00 [facility] Influenza Virus 2014-05-21 Completed Universit y of Vaccine Quad IM 3+ 00:00:00 [facility] Influenza Virus 2013-01-06 Completed Universit y of Vaccine (3+ yrs) 00:00:00 [facility] [facility] Influenza Virus 2013-01-06 Completed Universit y of Vaccine (3+ yrs) 00:00:00 [facility] [facility] Influenza Virus 2013-01-06 Completed Universit y of Vaccine (3+ yrs) 00:00:00 [facility] Influenza Virus 2013-01-06 Completed Universit y of Vaccine (3+ yrs) 00:00:00 [facility] Influenza Virus 2011-12-24 Completed Universit y of Vaccine 00:00:00 [facility] Influenza Virus 2011-12-24 Completed Universit y of Vaccine 00:00:00 [facility] Influenza Virus 2011-12-24 Completed Universit y of Vaccine 00:00:00 [facility] Influenza Virus 2011-12-24 Completed Universit y of Vaccine 00:00:00 [facility] Influenza Virus 2011-01-08 Completed Universit y of Vaccine 00:00:00 [facility] Influenza Virus 2011-01-08 Completed Universit y of Vaccine 00:00:00 [facility] Influenza Virus 2011-01-08 Completed Universit y of Vaccine 00:00:00 [facility] Influenza Virus 2011-01-08 Completed Universit y of Vaccine 00:00:00 [facility] Influenza Virus 2009-12-13 Completed Universit y of Vaccine 00:00:00 [facility] Influenza Virus 2009-12-13 Completed Universit y of Vaccine 00:00:00 [facility] Influenza Virus 2009-12-13 Completed Universit y of Vaccine 00:00:00 [facility] Influenza Virus 2009-12-13 Completed Universit y of Vaccine 00:00:00 [facility] Influenza Virus 2009-04-26 Completed Universit y of Vaccine 00:00:00 [facility] H1n1 Vaccine 2009-04-26 Completed University o f 00:00:00 [facility] Influenza Virus 2009-04-26 Completed Universit y of Vaccine 00:00:00 [facility] H1n1 Vaccine 2009-04-26 Completed University o f 00:00:00 [facility] Influenza Virus 2009-04-26 Completed Universit y of Vaccine 00:00:00 [facility] Influenza Virus 2009-04-26 Completed Universit y of Vaccine 00:00:00 [facility] H1n1 Vaccine 2009-04-26 Completed University o f 00:00:00 [facility] H1n1 Vaccine 2009-04-26 Completed University o f 00:00:00 [facility] Influenza Virus 2009-02-11 Completed Universit y of Vaccine 00:00:00 [facility] H1n1 Vaccine 2009-02-11 Completed University o f 00:00:00 [facility] Influenza Virus 2009-02-11 Completed Universit y of Vaccine 00:00:00 [facility] H1n1 Vaccine 2009-02-11 Completed University o f 00:00:00 [facility] Influenza Virus 2009-02-11 Completed Universit y of Vaccine 00:00:00 [facility] Influenza Virus 2009-02-11 Completed Universit y of Vaccine 00:00:00 [facility] H1n1 Vaccine 2009-02-11 Completed University o f 00:00:00 [facility] H1n1 Vaccine 2009-02-11 Completed University o f 00:00:00 [facility] HEPATITIS A 2007-01-04 Completed University of 00:00:00 [facility] DTAP 2007-01-04 Completed University of 00:00:00 [facility] MMR 2007-01-04 Completed University of 00:00:00 [facility] Pneumococcal 7 2007-01-04 Completed University of Conjugate, PCV7 00:00:00 [facility] ical (Prevnar7) Branch Polio (IPV/OPV) 2007-01-04 Completed Universit y of 00:00:00 [facility] Varicella 2007-01-04 Completed University of (varivax)(chicken 00:00:00 [facility] edical pox) Branch HEPATITIS A 2007-01-04 Completed University of 00:00:00 [facility] DTAP 2007-01-04 Completed University of 00:00:00 [facility] MMR 2007-01-04 Completed University of 00:00:00 [facility] Pneumococcal 7 2007-01-04 Completed University of Conjugate, PCV7 00:00:00 [place] Med ical (Prevnar7) Branch Polio (IPV/OPV) 2007-01-04 Completed Universit y of 00:00:00 [facility] Varicella 2007-01-04 Completed University of (varivax)(chicken 00:00:00 [place] M edical pox) Branch HEPATITIS A 2007-01-04 Completed University of 00:00:00 [facility] HEPATITIS A 2007-01-04 Completed University of 00:00:00 [facility] DTAP 2007-01-04 Completed University of 00:00:00 [facility] MMR 2007-01-04 Completed University of 00:00:00 [facility] Pneumococcal 7 2007-01-04 Completed University of Conjugate, PCV7 00:00:00 [place] Med ical (Prevnar7) Branch Polio (IPV/OPV) 2007-01-04 Completed Universit y of 00:00:00 [facility] Varicella 2007-01-04 Completed University of (varivax)(chicken 00:00:00 [facility] edical pox) Branch DTAP 2007-01-04 Completed University of 00:00:00 [facility] MMR 2007-01-04 Completed University of 00:00:00 [facility] Pneumococcal 7 2007-01-04 Completed University of Conjugate, PCV7 00:00:00 [place] Med ical (Prevnar7) Branch Polio (IPV/OPV) 2007-01-04 Completed Universit y of 00:00:00 [facility] Varicella 2007-01-04 Completed University of (varivax)(chicken 00:00:00 [facility] edical pox) Branch DTAP 2003-09-19 Completed University of 00:00:00 [facility] HIB 4 Dose Schedule 2003-09-19 Completed Unive rsity of 00:00:00 [facility] DTAP 2003-09-19 Completed University of 00:00:00 [facility] HIB 4 Dose Schedule 2003-09-19 Completed Unive rsity of 00:00:00 [facility] DTAP 2003-09-19 Completed University of 00:00:00 [facility] HIB 4 Dose Schedule 2003-09-19 Completed Unive rsity of 00:00:00 [facility] DTAP 2003-09-19 Completed University of 00:00:00 [facility] HIB 4 Dose Schedule 2003-09-19 Completed Unive rsity of 00:00:00 [facility] DTAP 2003-06-13 Completed University of 00:00:00 [facility] HIB 4 Dose Schedule 2003-06-13 Completed Unive rsity of 00:00:00 [facility] MMR 2003-06-13 Completed University of 00:00:00 [facility] Polio (IPV/OPV) 2003-06-13 Completed Universit y of 00:00:00 [facility] Varicella 2003-06-13 Completed University of (varivax)(chicken 00:00:00 [place] M edical pox) Branch DTAP 2003-06-13 Completed University of 00:00:00 [facility] HIB 4 Dose Schedule 2003-06-13 Completed Unive rsity of 00:00:00 [facility] MMR 2003-06-13 Completed University of 00:00:00 [facility] Polio (IPV/OPV) 2003-06-13 Completed Universit y of 00:00:00 [facility] Varicella 2003-06-13 Completed University of (varivax)(chicken 00:00:00 [place] M edical pox) Branch DTAP 2003-06-13 Completed University of 00:00:00 [facility] HIB 4 Dose Schedule 2003-06-13 Completed Unive rsity of 00:00:00 [facility] MMR 2003-06-13 Completed University of 00:00:00 [facility] Polio (IPV/OPV) 2003-06-13 Completed Universit y of 00:00:00 [facility] Varicella 2003-06-13 Completed University of (varivax)(chicken 00:00:00 [place] M edical pox) Branch DTAP 2003-06-13 Completed University of 00:00:00 [facility] HIB 4 Dose Schedule 2003-06-13 Completed Unive rsity of 00:00:00 [facility] MMR 2003-06-13 Completed University of 00:00:00 [facility] Polio (IPV/OPV) 2003-06-13 Completed Universit y of 00:00:00 [facility] Varicella 2003-06-13 Completed University of (varivax)(chicken 00:00:00 [place] M edical pox) Branch DTAP 2002 Completed University of 00:00:00 [facility] HIB 4 Dose Schedule 2002 Completed Unive rsity of 00:00:00 [facility] Hep B, Adol or Pedi 2002 Completed Unive rsity of Dosage 00:00:00 [facility] Pneumococcal 7 2002 Completed University of Conjugate, PCV7 00:00:00 [place] Med ical (Prevnar7) Branch Polio (IPV/OPV) 2002 Completed Universit y of 00:00:00 [facility] DTAP 2002 Completed University of 00:00:00 [facility] HIB 4 Dose Schedule 2002 Completed Unive rsity of 00:00:00 [facility] Hep B, Adol or Pedi 2002 Completed Unive rsity of Dosage 00:00:00 [facility] Pneumococcal 7 2002 Completed University of Conjugate, PCV7 00:00:00 [place] Med ical (Prevnar7) Branch Polio (IPV/OPV) 2002 Completed Universit y of 00:00:00 [facility] DTAP 2002 Completed University of 00:00:00 [facility] HIB 4 Dose Schedule 2002 Completed Unive rsity of 00:00:00 [facility] Hep B, Adol or Pedi 2002 Completed Unive rsity of Dosage 00:00:00 [facility] Pneumococcal 7 2002 Completed University of Conjugate, PCV7 00:00:00 [place] Med ical (Prevnar7) Branch Polio (IPV/OPV) 2002 Completed Universit y of 00:00:00 [facility] DTAP 2002 Completed University of 00:00:00 [facility] HIB 4 Dose Schedule 2002 Completed Unive rsity of 00:00:00 [facility] Hep B, Adol or Pedi 2002 Completed Unive rsity of Dosage 00:00:00 [facility] Pneumococcal 7 2002 Completed University of Conjugate, PCV7 00:00:00 [place] Med ical (Prevnar7) Branch Polio (IPV/OPV) 2002 Completed Universit y of 00:00:00 [facility] DTAP 2002 Completed University of 00:00:00 [facility] HIB 4 Dose Schedule 2002 Completed Unive rsity of 00:00:00 [facility] Hep B, Adol or Pedi 2002 Completed Unive rsity of Dosage 00:00:00 [facility] Pneumococcal 7 2002 Completed University of Conjugate, PCV7 00:00:00 [place] Med ical (Prevnar7) Branch DTAP 2002 Completed University of 00:00:00 [facility] HIB 4 Dose Schedule 2002 Completed Unive rsity of 00:00:00 [facility] Hep B, Adol or Pedi 2002 Completed Unive rsity of Dosage 00:00:00 [facility] Pneumococcal 7 2002 Completed University of Conjugate, PCV7 00:00:00 [place] Med ical (Prevnar7) Branch DTAP 2002 Completed University of 00:00:00 [facility] HIB 4 Dose Schedule 2002 Completed Unive rsity of 00:00:00 [facility] Hep B, Adol or Pedi 2002 Completed Unive rsity of Dosage 00:00:00 [facility] Pneumococcal 7 2002 Completed University of Conjugate, PCV7 00:00:00 [place] Med ical (Prevnar7) Branch DTAP 2002 Completed University of 00:00:00 [facility] HIB 4 Dose Schedule 2002 Completed Unive rsity of 00:00:00 [facility] Hep B, Adol or Pedi 2002 Completed Unive rsity of Dosage 00:00:00 [facility] Pneumococcal 7 2002 Completed University of Conjugate, PCV7 00:00:00 [facility] ical (Prevnar7) Branch Polio (IPV/OPV) 2002 Completed Universit y of 00:00:00 [facility] Polio (IPV/OPV) 2002 Completed Universit y of 00:00:00 [facility] Polio (IPV/OPV) 2002 Completed Universit y of 00:00:00 [facility] Polio (IPV/OPV) 2002 Completed Universit y of 00:00:00 [facility] Hep B, Adol or Pedi 2002 Completed Unive rsity of Dosage 00:00:00 [facility] Hep B, Adol or Pedi 2002 Completed Unive rsity of Dosage 00:00:00 [facility] Hep B, Adol or Pedi 2002 Completed Unive rsity of Dosage 00:00:00 [facility] Hep B, Adol or Pedi 2002 Completed Unive rsity of Dosage 00:00:00 [facility] Branch Vital Signs Vital Name Observation Time Observation Value Comments Source Systolic blood 2022-08-30 01:28:09 133 mm[Hg] Univer sity of pressure [facility] Diastolic blood 2022-08-30 01:28:09 55 mm[Hg] Unive rsity of pressure [facility] Heart rate 2022-08-30 01:28:09 72 /min Universi ty of [facility] Body temperature 2022-08-30 01:28:09 36.83 Araceli Univ ers[facility] Respiratory rate 2022-08-30 01:28:09 18 /min Univ [facility] Oxygen saturation in 2022-08-30 01:28:09 98 /min University of Arterial blood by [facility] Pulse oximetry Branch Body weight 2022-08-29 22:32:00 61.236 kg Universi ty [facility] Body temperature 2022-08-20 23:12:00 37 Araceli Univ [facility] BMI 2022-08-20 23:11:00 19.51 kg/m2 [facility] Oxygen saturation in 2022-08-20 23:11:00 99 /min University of Arterial blood by [facility] Pulse oximetry Branch Systolic blood 2022-08-20 23:11:00 137 mm[Hg] Univer sity of pressure [facility] Diastolic blood 2022-08-20 23:11:00 89 mm[Hg] Unive rsity of pressure [facility] Heart rate 2022-08-20 23:11:00 62 /min [facility]i [facility] Respiratory rate 2022-08-20 23:11:00 16 /min Univ [facility] Body height 2022-08-20 23:11:00 177.8 cm [facility] Body weight 2022-08-20 23:11:00 61.689 kg [facility] Systolic blood 2022-08-09 05:00:00 122 mm[Hg] Univer sity of pressure [facility] Diastolic blood 2022-08-09 05:00:00 66 mm[Hg] Unive rsity of pressure [facility] Heart rate 2022-08-09 05:00:00 61 /min Universi ty of [facility] Respiratory rate 2022-08-09 05:00:00 13 /min Univ ersity of [facility] Oxygen saturation in 2022-08-09 05:00:00 99 /min University of Arterial blood by [place] [facility] Pulse oximetry Branch Body temperature 2022-08-09 02:18:46 36.89 Araceli Univ ersity of [facility] Body height 2022-08-09 02:17:00 177.8 cm Universi ty of [facility] Body weight 2022-08-09 02:17:00 61.689 kg Universi ty of [facility] BMI 2022-08-09 02:17:00 19.51 kg/m2 Universi ty of [facility] Systolic blood 2022-07-29 23:52:00 130 mm[Hg] Univer sity of [facility] Diastolic blood 2022-07-29 23:52:00 77 mm[Hg] Unive rsity of pressure [facility] Heart rate 2022-07-29 23:52:00 55 /min Universi ty of [facility] Body temperature 2022-07-29 23:52:00 36.72 Araceli Univ ersity of [facility] Respiratory rate 2022-07-29 23:52:00 16 /min Univ ersity of [facility] Body height 2022-07-29 23:52:00 177.8 cm Universi ty of [facility] Body weight 2022-07-29 23:52:00 61.326 kg Universi ty of [facility] BMI 2022-07-29 23:52:00 19.40 kg/m2 Universi ty of [facility] Oxygen saturation in 2022-07-29 23:52:00 100 /min University of Arterial blood by [place] [facility] Pulse oximetry Branch Procedures Procedure Date / Time Performing Clinician Source Performed XR CHEST 2 VW 2022-08-29 23:07:18 Nathalie Kowalski Universi ty [facility] ASSIGNMENT OF BENEFITS 2022-08-29 23:03:44 Doctor Unassigned, No [facility] CONSENT/REFUSAL FOR 2022-08-29 22:27:46 Doctor Unassigned, No [facility] [place] [facility] Name Medical Branch ASSIGNMENT OF BENEFITS 2022-08-21 00:12:49 Doctor Unassigned, No [facility] Medical Branch CONSENT/REFUSAL FOR 2022-08-20 22:51:27 Doctor Unassigned, No Un iversity [facility] DIAGNOSIS AND TREATMENT Name Medical Branch ASSIGNMENT OF BENEFITS 2022-08-09 05:05:25 Doctor Unassigned, No [facility] CT ABDOMEN PELVIS W 2022-08-09 03:45:01 Gary Levin [facility] CONTRAST Medical Branch LIPASE 2022-08-09 03:30:00 Gary Levin [facility] COMP. METABOLIC PANEL 2022-08-09 03:30:00 Gary Levin [facility] ([id number]) Medical [place] CBC WITH DIFF 2022-08-09 03:30:00 Gary Levin [facility] URINALYSIS 2022-08-09 03:30:00 Gary Levin [facility] URINE DRUG (IMMUNOASSAY) 2022-08-09 03:30:00 Gary Leivn [facility] DRUG Medical [facility] SCREEN W/O REFLEX CONSENT/REFUSAL FOR 2022-08-09 02:05:28 Doctor Unassigned, No [facility] [place] [facility] Name Medical Branch ASSIGNMENT OF BENEFITS 2022-07-30 00:15:37 Doctor Unassigned, No [facility] NOTICE OF PRIVACY 2022-07-30 00:00:08 Doctor Unassigned, No Univ [facility] PRACTICES [facility] Medical Branch CONSENT/REFUSAL FOR 2022-07-29 23:40:29 Doctor Unassigned, No [facility] [place] [facility] Medical Branch Encounters Start End Encounter Admission Attending Care Care Encounter Source Date/Time Date/Time Type Type Clinicians Facility Department ID 2022-08-29 2022-08-29 Emergency X MEGHANA TXTOM ERT [id number] Univers 17:33:00 20:31:00 NATHALIE devlin [facility] 2022-08-29 2022-08-29 Emergency Meghana TXTOM [id number] Univers 17:33:00 20:31:00 Sharonjuni [facility] [id number] ity of [place] 4.2.7.2.686 [facility] [id number] [address] 2022-08-20 2022-08-20 [facility] [id number] Univers 18:12:00 22:38:00 JUAN LUIS ity [facility] 2022-08-20 2022-08-20 [facility] [id number] Univers 18:12:00 22:38:00 Juan Luis [facility] [id number] i ty of [place] 4.2.7.2.686 [facility] [id number] [address] 2022-08-08 2022-08-09 Emergency [facility] [id number] Univers 21:20:00 00:18:00 GARY ity [facility] 2022-08-08 2022-08-09 Emergency [facility] [id number] Univers 21:20:00 00:18:00 Gary [facility] 350.1.13.10 i ty of [place] 4.2.7.2.6 [facility] [id number] [address] 2022-07-29 2022-07-29 Emergency [facility] [id number] Univers 19:15:00 19:44:00 LUCAS it y of [facility] 2022-07-29 2022-07-29 Emergency [facility] [id number] Univers 19:15:00 19:44:00 Lucas KSENIACHICHO 350.1.13.10 ity of [place] 4.2.7.2.686 [facility] [id number] [address] Results Test Description Test Time Test Comments Results Result Comments Source COMP. METABOLIC PANEL (04110) 2022-08-09 04:03:38 Test Item Value Reference Range Interpretation Comme nts NA (test code = 8709555749) 140 mmol/L 135-145 K (test code = 9284981756) 4.3 mmol/L 3.5-5.0 CL (test code = 7735433634) 103 mmol/L 98-108 CO2 TOTAL (test code = 3758804123) 28 mmol/L 23-31 AGAP (test code = 0249944923) 9 2-16 BUN (test code = 4935536155) 6 mg/dL 7-23 L GLUCOSE (test code = 7589996777) 88 mg/dL 70-110 CREATININE (test code = 0.78 mg/dL 0.60-1.25 4198142367) TOTAL BILI (test code = 0.9 mg/dL 0.1-1.7 4196703355) CALCIUM (test code = 8155672353) 9.4 mg/dL 8.6-10.6 T PROTEIN (test code = 1318419303) 7.3 g/dL 6.3-8.2 ALBUMIN (test code = 5558030336) 4.2 g/dL 3.5-5.0 ALK PHOS (test code = 7261918838) 66 U/L 34-122 ALTv (test code = 1742-6) 17 U/L 5-50 AST(SGOT) (test code = 2927845117) 23 U/L 13-40 eGFR (test code = 2231232952) 126.9 mL/min/1.73m2 LUAN (test code = LUAN) Association of Glomerular Filtration Rate (GFR) and Staging of Kidney Disease* + +-------- + ------+| GFR (mL/min/1.73 m2) ?| With Kidney Damage ?| ?Without Kidney Damage+ +-- + +| ?>90 ?| ?Stage one ?| ? Normal ?+ +------- + -------+| ?60-89 ?| ?Stage two ?| ? Decreased GFR ? + +-------- + ------+| ?30-59 ?| ?Stage three ?| ? Stage three ? + +-------- + ------+| ?15-29 ?| ?Stage four ? | ? Stage four ?+ +------- + -------+| ?<15 (or dialysis) ? ?| ?Stage five ? | ? Stage five ?+ +------- + -------+ *Each stage assumes the associated GFR level has been in effect for at least three months. ?Stages 1 to 5, with or without kidney disease, indicate chronic kidney disease. Notes: Determination of stages one and two (with eGFR >59mL/min/1.73 m2) requires estimation of kidney damage for at least three months as defined by structural or functional abnormalities of the kidney, manifested by either:Pathological abnormalities or Markers of kidney damage (including abnormalities in the composition of the blood or urine or abnormalities in imaging tests). Lab Interpretation (test code = Abnormal 20330-2) [facility]18 Test Item Value Reference Range Interpretation Comments LIPASE (test code = 7253067184) 43 U/L 0-220 Lab Interpretation (test code = Normal 33255-6) [facility] WITH [id number] 03:58:21 Test Item Value Reference Range Interpretation Comments WBC (test code = 6.59 See_Comment [Automated 9890-2) message] The sy stem which generated this result transmitted reference range : 4.20 - 10.70 10*3/?L. The reference range was not used to interpret this result as normal/abnormal . RBC (test code = 5.44 See_Comment [Automated 499-8) message] The sy stem which generated this result transmitted reference range : 4.26 - 5.52 10*6/?L. The reference range was not used to interpret this result as normal/abnormal . HGB (test code = 15.9 g/dL 12.2-16.4 718-7) HCT (test code = 48.5 % 38.4-49.3 4544-3) MCV (test code = 89.2 fL 81.7-95.6 787-2) MCH (test code = 29.2 pg 26.1-32.7 785-6) MCHC (test code = 32.8 g/dL 31.2-35.0 786-4) RDW-SD (test code = 41.9 fL 38.5-51.6 17727-6) RDW-CV (test code = 12.9 % 12.1-15.4 788-0) PLT (test code = 329 See_Comment H [Automated 367-3) message] The sy stem which generated this result transmitted reference range : 150 - 328 10*3/ ?L. The reference r manuel was not used to interpret this result as normal/abnormal . MPV (test code = 9.7 fL 9.8-13.0 L 96489-4) NRBC/100 WBC (test 0.0 See_Comment [Automat ed code = 5172284560) message] The system which generated this result transmitted reference range : 0.0 - 10.0 /100 WBCs. The refer ence range was not u sed to interpret th is result as normal/abnormal . NRBC x10^3 (test code See_Comment [Auto mated = 6554251828) message] The s ystem which generated this result transmitted reference range : 10*3/?L. The reference range was not used to interpret this result as normal/abnormal . GRAN MAT (NEUT) % 54.5 % (test code = 770-8) IMM GRAN % (test code 0.20 % = 4739112048) LYMPH % (test code = 37.2 % 736-9) MONO % (test code = 5.6 % 5905-5) EOS % (test code = 2.0 % 713-8) BASO % (test code = 0.5 % 706-2) GRAN MAT x10^3(ANC) 3.60 10*3/uL 1.99-6.95 (test code = 8534763954) IMM GRAN x10^3 (test 0.00-0.06 code = 8107478635) LYMPH x10^3 (test code 2.45 10*3/uL 1.09-3.23 = 731-0) MONO x10^3 (test code 0.37 10*3/uL 0.36-1.02 = 742-7) EOS x10^3 (test code = 0.13 10*3/uL 0.06-0.53 711-2) BASO x10^3 (test code 0.03 10*3/uL 0.01-0.09 = 704-7) Lab Interpretation Abnormal (test code = 36136-1) [facility]"
[2022-11-10] MEDS ORDERED: ONDANSETRON 4 MG (ODT) TAB ONE (15:48)
[2022-11-10 15:59] LABS: SARS-CoV-2 Antigen Rapid Res Negative (Negative)
--- NOTE | 2022-11-10 16:37 | EDPHYS ---
Physician Documentation [facility] Name: Tobias Isabel Age: 22 yrs Sex: Male : 2000 Arrival Date: 11/10/2022 Time: 15:16 Bed 19 Private MD: ED Physician José Antonio Burt HPI: 11/10 15:36 This 22 yrs old Male presents to ER via Ambulatory with complaints of vomiting.sb4 15:36 Onset: The symptoms/episode began/occurred just prior to arrival. Associated signs and sb4 symptoms: Pertinent positives: shortness of breath, nausea. 15:38 patient has been taking indomethacin for his ankle for a few months now. states that sb4 today he took it and ate like he normally does but vomited this afternoon and was sent home from work. he states he also had an episode of shortness of breath. Historical: - Allergies: 15:25 No Known Allergies; aa5 - Home Meds: 15:25 indomethacin 50 mg oral capsule 3 times per day [Active]; aa5 - PMHx: 15:25 ADD/ADHD; aa5 - PSHx: 15:25 None; aa5 - Immunization history:: Adult Immunizations unknown. - Social history:: Smoking status: Patient reports the use of cigarette tobacco products, denies chronic smoking, but will smoke occasionally. ROS: 15:38 Constitutional: Negative for fever, chills, and weight loss. sb4 15:38 Respiratory: Positive for shortness of breath. 15:38 Abdomen/GI: Positive for nausea and vomiting. 15:38 All other systems are negative. Exam: 15:38 Head/Face: Normocephalic, atraumatic. Eyes: Extra-ocular motions intact. Periorbital sb4 areas with no swelling, redness, or edema. ENT: Mucous membranes moist. Cardiovascular: Regular rate and rhythm with a normal S1 and S2. Respiratory: Lungs have equal breath sounds bilaterally, clear to auscultation and percussion. No rales, rhonchi or wheezes noted. No increased work of breathing, no retractions or nasal flaring. Abdomen/GI: Soft, non-tender, no distension. Skin: Warm, dry with normal turgor. Normal color with no rashes, no lesions, and no evidence of cellulitis. MS/ Extremity: Pulses equal, no cyanosis. Neurovascular intact. Full, normal range of motion. Neuro: Awake and alert, GCS 15, oriented to person, place, time, and situation. Cranial nerves II-XII grossly intact. Motor strength 5/5 in all extremities. Sensory grossly intact. Cerebellar exam normal. Normal gait. 15:38 Constitutional: The patient appears in no acute distress, alert, awake, obviously ill. Vital Signs: 15:23 BP 133 / 75; Pulse 72; Resp 16 S; Temp 98.8(TE); Pulse Ox 99% on R/A; Weight 62.6 kg aa5 (R); 17:09 BP 132 / 73; Pulse 52; Resp 16; Pulse Ox 99% ; ll1 MDM: 15:23 Patient medically screened. sb4 15:38 Differential diagnosis: viral Infection, gastroenteritis, medication reaction, covid, sb4 flu. 16:35 Data reviewed: vital signs, nurses notes, lab test result(s), and as a result, I will sb4 discharge patient. I considered the following discharge prescriptions or medication management in the emergency department Antibiotics: At this time antibiotics are not recommended, Antivirals: At this time, antivirals are not recommended. Counseling: I had a detailed discussion with the patient and/or guardian regarding the historical points, exam findings, and any diagnostic results supporting the discharge/admit diagnosis, lab results, to return to the emergency department if symptoms worsen or persist or if there are any questions or concerns that arise at home. 11/10 15:34 Order name: SARS RAPID; Complete Time: 16:06 sb4 11/10 15:34 Order name: Flu; Complete Time: 16:33 sb4 Administered Medications: 15:41 Drug: Ondansetron PO 4 mg Route: PO; mb9 16:05 Follow up: Response: No adverse reaction; Nausea is decreased nj1 Disposition: 16:52 Co-signature as Attending Physician, José Antonio Burt DO I was immediately available on-site ms3 in the Emergency Department for consultation in the care of the patient. Disposition Summary: 11/10/22 16:36 Discharge Ordered Location: Home sb4 Problem: new sb4 Symptoms: have improved sb4 Condition: Stable sb4 Diagnosis - Nausea with vomiting, unspecified sb4 - Viral infection, unspecified sb4 Followup: sb4 - With: Private Physician - When: As needed - Reason: Recheck today's complaints, Continuance of care, Re-evaluation by your physician Discharge Instructions: - Discharge Summary Sheet sb4 - Nausea and Vomiting, Adult sb4 - Viral Illness, Adult sb4 Forms: - Work release form sb4 - Medication Reconciliation Form sb4 - Thank You Letter sb4 - Antibiotic Education sb4 - Prescription Opioid Use sb4 - Patient Portal Instructions sb4 - Leadership Thank You Letter sb4 Prescriptions: - albuterol sulfate 90 mcg/actuation Inhalation HFA Aerosol Inhaler - inhale 1 puff by INHALATION route every 4 hours as needed for bronchospasm; sb4 administer via ventilator; 1 Applicator; Refills: 0, Product Selection Permitted - Zofran 4 mg Oral Tablet - take 1 tablet by ORAL route every 12 hours As needed; 20 tablet; Refills: 0, sb4 Product Selection Permitted - Medrol (Dontrell) 4 mg Oral Tablets, Dose Pack - take 1 tablet by ORAL route as directed - follow package instructions; 1 sb4 packet; Refills: 0, Product Selection Permitted Signatures: Dispatcher [employer] EDShanelle Cunningham, RN RN aa5 José Antonio Burt, DO ms3 Yue Stevens PAMarta PAMarta sb4 Nohemy Connolly RN RN mb9 Valerie Busch RN nj1
--- NOTE | 2022-11-10 16:37 | ER ---
Nurse's Notes [facility] Name: Tobias Isabel Age: 22 yrs Sex: Male : 2000 Arrival Date: 11/10/2022 Time: 15:16 Bed 19 Private MD: Diagnosis: Nausea with vomiting, unspecified;Viral infection, unspecified Presentation: 11/10 15:23 Chief complaint: Patient states: "I got sent home from work today because I am aa5 nauseated". Pt states "I think it's from me taking Indomethacin". Pt reports vomiting once today. Coronavirus screen: At this time, the client does not indicate any symptoms associated with coronavirus-19. Ebola Screen: Patient denies travel to an Ebola-affected area in the 21 days before illness onset. Initial Sepsis Screen: Does the patient meet any 2 criteria? No. Patient's initial sepsis screen is negative. Does the patient have a suspected source of infection? No. Patient's initial sepsis screen is negative. Risk Assessment: Do you want to hurt yourself or someone else? Patient reports no desire to harm self or others. Onset of symptoms was November 10, 2022. 15:23 Acuity: MYRNA 3 aa5 15:23 Method Of Arrival: Ambulatory aa5 Historical: - Allergies: 15:25 No Known Allergies; aa5 - Home Meds: 15:25 indomethacin 50 mg oral capsule 3 times per day [Active]; aa5 - PMHx: 15:25 ADD/ADHD; aa5 - PSHx: 15:25 None; aa5 - Immunization history:: Adult Immunizations unknown. - Social history:: Smoking status: Patient reports the use of cigarette tobacco products, denies chronic smoking, but will smoke occasionally. Screenin:05 [facility] ED Fall Risk Assessment (Adult) Score/Fall Risk Level 0 - 2 = Low Risk nj1 Oriented to surroundings, Maintained a safe environment, Hourly rounding (assess needs \\T\\ fall precautionary measures) done. Abuse screen: Denies threats or abuse. Denies injuries from another. Nutritional screening: No deficits noted. Tuberculosis screening: No symptoms or risk factors identified. Assessment: 16:00 General: Appears in no apparent distress. comfortable, Behavior is calm, cooperative, nj1 appropriate for age. 16:00 Pain: Denies pain. Neuro: Level of Consciousness is awake, alert, obeys commands, nj1 Oriented to person, place, time, situation. Cardiovascular: Patient's skin is warm and dry. Respiratory: Airway is patent Respiratory effort is even, unlabored. GI: Reports Pt states nausea has improved with medication adminsitered. 17:05 Reassessment: No changes from previously documented assessment. Patient and/or family ll1 updated on plan of care and expected duration. Pain level reassessed. Patient is alert, oriented x 3, equal unlabored respirations, skin warm/dry/pink. Vital Signs: 15:23 BP 133 / 75; Pulse 72; Resp 16 S; Temp 98.8(TE); Pulse Ox 99% on R/A; Weight 62.6 kg aa5 (R); 17:09 BP 132 / 73; Pulse 52; Resp 16; Pulse Ox 99% ; ll1 ED Course: 15:17 Patient arrived in ED. kj1 15:19 Yue Stevens PA-C is [facility]. sb4 15:19 José Antonio Burt DO is Attending Physician. sb4 15:23 Arm band placed on. aa5 15:25 Triage completed. aa5 15:41 Flu Sent. mb9 15:41 SARS RAPID Sent. mb9 16:02 Valerie Busch, DIMITRI is Primary Nurse. nj1 16:06 Patient has correct armband on for positive identification. Bed in low position. Call nj1 light in reach. Provided Education on: fall precautions, call light. 17:09 No provider procedures requiring assistance completed. Patient did not have IV access ll1 during this emergency room visit. Administered Medications: 15:41 Drug: Ondansetron PO 4 mg Route: PO; mb9 16:05 Follow up: Response: No adverse reaction; Nausea is decreased nj1 Medication: 16:06 VIS not applicable for this client. nj1 Outcome: 16:36 Discharge ordered by . sb4 17:09 Discharged to home ambulatory. ll1 17:09 Condition: stable 17:09 Discharge instructions given to patient, Instructed on discharge instructions, follow up and referral plans. medication usage, Demonstrated understanding of instructions, follow-up care, medications, Prescriptions given X 3. 17:10 Patient left the ED. ll1 Signatures: Shanelle Abernathy RN RN aa5 Chloe Alston kj1 Suzanne Gardner RN RN ll1 Yue Stevens PAMarta PA-C sb4 Nohemy Connolly RN RN mb9 Valerie Busch RN RN nj1 Corrections: (The following items were deleted from the chart) 15:27 15:23 62.6 kg Reported; aa5 aa5
[2022-11-10 17:15] VITALS: TEMP 98.8; O2SAT 99
[2022-11-10 17:17] VITALS: BP 132/73
== END 2022-11-10 17:10 | disposition home or self-care (01) ==
LOC: ER 15:16
DX: B34.9 Viral infection, unspecified (principal); F17.210 Nicotine dependence, cigarettes, uncomplicated; Z20.822 Contact with and (suspected) exposure to COVID-19
CPT/HCPCS: 36415; 87804 ×2; 99283; 87811; Q0162

== ENCOUNTER 2023-01-21 13:44 | Emergency (ER) | payer OTHER, SELFPAY ==
--- OUTSIDE RECORDS SUMMARY | 2023-01-21 13:48 | XMS REPORT | Continuity of Care Document ---
:2000 Author Organization [facility] t Address [address] [place] [address] [place] [id number] Care Team Providers Name Role Phone TANK [...] Number Effective Date Expiration Date S lolita [place] CHILDREN STAR [id number] 2022 KIDS 00:00:00 Problems Condition Condition Condition Status Onset Resolution Last Treating Co mments Source Name Details Category Date Date Treatment Clinician Date Attention Attention Disease Active Uni vers deficit deficit 4-22 ity of disorder disorder 00:00: [place] (ADD), (ADD), 00 Medical child, child, Branch with with hyperactiv hyperactiv ity ity Depression Depression Disease Active 2014-03 U nivers 2-18 ity of 00:00: [place] 00 Medical Branch Allergies, Adverse Reactions, Alerts Allergy Allergy Status Severity Reaction(s) Onset Inactive Treating Comm ents Source Name Type Date Date Clinician NO KNOWN Drug Active Univers ALLERGIE Class ity of S [facility] Social History Social Habit Start Date Stop Date Quantity Comments Source Alcohol intake 2022-08-29 2022-08-29 Current University of 00:00:00 00:00:00 non-drinker of [facility] alcohol (finding) Branch Exposure to 2022-07-29 2022-08-08 Not sure University SARS-CoV-2 00:00:00 21:15:00 [facility] (event) Branch Tobacco use and 2013-01-06 2013-01-06 Smokeless tobacco Un iversity of exposure 00:00:00 00:00:00 non-user [facility] Tobacco Comment 2013-01-06 2013-01-06 Denies smoking Unive rsity of 00:00:00 00:00:00 exposure [facility] Sex Assigned At [birth year] Universit y of 00:00:00 00:00:00 [facility] Smoking Status Start Date Stop Date Source Never smoked tobacco [facility] Medications Ordered Filled Start Stop Current Ordering Indication Dosage Frequency Signature Comments Components Source Medication Medication Date Date Medication? Clinician (SIG) Name Name albuterol Yes [id number] 2{puff} Inhale 2 Univers 90 6-10 Puffs ity of mcg/actuati 00:00: every 4 [place] as on inhaler 00 (four) Medical hours as Branch needed for Wheezing or Shortness of Breath. benzonatate Yes [id number] 100mg Take 1 Univers 100 mg 6-10 capsule by ity of capsule 00:00: mouth 3 [place] 00 (three) Medical times Branch daily as needed for Cough. azithromyci Yes [id number] 250mg Take 1 Univers n 250 mg 6-10 tablet by ity of tablet 00:00: mouth in [place] 00 the Medical morning. Branch methylPREDN Yes [id number] Take by Univers ISolone 6-10 mouth ity [...] at 0000, [place] iopamidol 2022-0 2022- No [id number] 100mL 100 mL, Univers (ISOVUE 08-09 Intravenou [...] jos 1:1:1 Sat Branch ([facility] 08/08/22 at [facility]) 2330, [place] oral suspension 15 [...] 08/08/22 at 2245, [place] simethicone 2022-0 Yes [id number] 80mg Take 1 Univers 80 mg 5-20 tablet by ity of chewable 00:00: mouth [place] tablet 00 after Medical meals and Branch at bedtime. dicyclomine 2022-0 Yes [id number] 20mg Take 1 Univers 20 mg 5-20 tablet by ity of tablet 00:00: mouth 4 [place] 00 (four) Medical times Branch daily. ondansetron 2023-0 Yes [id number] 4mg Take 1 Univers 4 mg 5-20 tablet by ity of disintegrat 00:00: mouth [place] ing tablet 00 every 4 Medica l (four) Branch hours as needed for Nausea and Vomiting (N/V). famotidine 2023-0 Yes [id number] 20mg Take 1 U nivers 20 mg 5-20 tablet by ity of tablet 00:00: mouth in [place] 00 the Medical morning Branch and 1 tablet in the evening. simethicone 2023-0 Yes [id number] 80mg Take 1 Univers 80 mg 5-20 tablet by ity of chewable 00:00: mouth [place] tablet 00 after Medical meals and Branch at bedtime. dicyclomine 2023-0 Yes [id number] 20mg Take 1 Univers 20 mg 5-20 tablet by ity of tablet 00:00: mouth 4 [place] 00 (four) Medical times Branch daily. ondansetron 2023-0 Yes [id number] 4mg Take 1 Univers 4 mg 5-20 tablet by ity of disintegrat 00:00: mouth [place] ing tablet 00 every 4 Medica l (four) Branch hours as needed for Nausea and Vomiting (N/V). famotidine 2023-0 Yes [id number] 20mg Take 1 U nivers 20 mg 5-20 tablet by ity of tablet 00:00: mouth in [place] the Medical morning Branch and 1 tablet in the evening. simethicone 2023-0 Yes [id number] 80mg Take 1 Univers 80 mg 5-20 tablet by ity of chewable 00:00: mouth [place] tablet 00 after Medical meals and Branch at bedtime. dicyclomine 2023-0 Yes [id number] 20mg Take 1 Univers 20 mg 5-20 tablet by ity of tablet 00:00: mouth 4 [place] 00 (four) Medical times Branch daily. ondansetron 2023-0 Yes [id number] 4mg Take 1 Univers 4 mg 5-20 tablet by ity of disintegrat 00:00: mouth [place] ing tablet 00 every 4 Medica l (four) Branch hours as needed for Nausea and Vomiting (N/V). famotidine 2023-0 Yes [id number] 20mg Take 1 U nivers 20 mg 5-20 tablet by ity of tablet 00:00: mouth in [place] 00 the Medical morning Branch and 1 [...] every Medical capsule morning. Branch FLUoxetine Yes [id number] 20mg Take 1 U nivers (PROZAC) 20 8-31 tablet by ity of mg tablet 00:00: mouth [place] 00 daily. Medical Branch FLUoxetine 2015-0 Yes [id number] 20mg Take 1 U nivers (PROZAC) 20 8-31 tablet by ity of mg tablet 00:00: mouth [place] 00 daily. Medical Branch FLUoxetine 0 Yes [id number] 20mg Take 1 U nivers (PROZAC) 20 8-31 tablet by ity of mg tablet 00:00: mouth [place] 00 daily. Medical Branch FLUoxetine Yes [id number] 20mg Take 1 U nivers (PROZAC) 20 8-31 tablet by ity of mg tablet 00:00: mouth [place] 00 daily. Medical Branch Vital Signs Vital Name Observation Time Observation Value Comments Source Systolic blood 2022-08-30 01:28:09 133 mm[Hg] Univer sity of pressure [facility] Branch Diastolic blood 2022-08-30 01:28:09 55 mm[Hg] Unive rsity of pressure [facility] Heart rate 2022-08-30 01:28:09 72 /min Universi ty of [facility] Body temperature 2022-08-30 01:28:09 36.83 Araceli Univ ersity of [facility] Branch Respiratory rate 2022-08-30 01:28:09 18 /min Univ ersity of [facility] Oxygen saturation in 2022-08-30 01:28:09 98 /min University of Arterial blood by [facility] Pulse oximetry Branch Body weight 2022-08-29 22:32:00 61.236 kg Universi ty [facility] Body temperature 2022-08-20 23:12:00 37 Araceli [facility] ersity of [facility] BMI 2022-08-20 23:11:00 19.51 kg/m2 Universi ty [facility] Oxygen saturation in 2022-08-20 23:11:00 99 /min University of Arterial blood by [facility] Pulse oximetry Branch Systolic blood 2022-08-20 23:11:00 137 mm[Hg] Univer sity of [facility] Diastolic blood 2022-08-20 23:11:00 89 mm[Hg] Unive rsity of [facility] Heart rate 2022-08-20 23:11:00 62 /min Universi ty [facility] Branch Respiratory rate 2022-08-20 23:11:00 16 /min Univ ersity of [facility] Body height 2022-08-20 23:11:00 177.8 cm Universi ty [facility] Body weight 2022-08-20 23:11:00 61.689 kg Universi ty [facility] Systolic blood 2022-08-09 05:00:00 122 mm[Hg] Univer sity of pressure [facility] Diastolic blood 2022-08-09 05:00:00 66 mm[Hg] Unive rsity of pressure [facility] Heart rate 2022-08-09 05:00:00 61 /min Universi ty of [place] [facility] Respiratory rate 2022-08-09 05:00:00 13 /min [facility] ersity of [facility] Oxygen saturation in 2022-08-09 05:00:00 99 /min University of Arterial blood by [facility] Pulse oximetry Branch Body temperature 2022-08-09 02:18:46 36.89 Araceli [facility] ersity of [place] [facility] Body height 2022-08-09 02:17:00 177.8 cm Universi ty of [place] [facility] [place] Body weight 2022-08-09 02:17:00 61.689 kg Universi ty of [place] [facility] BMI 2022-08-09 02:17:00 19.51 kg/m2 Universi ty of [facility] Branch Systolic blood 2022-07-29 23:52:00 130 mm[Hg] Univer sity of pressure [facility] Diastolic blood 2022-07-29 23:52:00 77 mm[facility]Hg] [facility] Heart rate 2022-07-29 23:52:00 55 /min Universi ty of [place] [facility] [place] Body temperature 2022-07-29 23:52:00 36.72 Araceli [facility] ersity of [facility] Respiratory rate 2022-07-29 23:52:00 16 /min [facility] ersity of [place] [facility] [place] Body height 2022-07-29 23:52:00 177.8 cm Universi ty of [place] [facility] [place] Body weight 2022-07-29 23:52:00 61.326 kg Universi ty of [place] [facility] BMI 2022-07-29 23:52:00 19.40 kg/m2 Universi ty of [place] [facility] Oxygen saturation in 2022-07-29 23:52:00 100 /min University of Arterial blood by [facility] Pulse oximetry Branch Procedures Procedure Date / Time Performing Clinician Source Performed XR CHEST 2 VW 2022-08-29 23:07:18 Nathalie Kowalski [facility] [place] [facility] [place] ASSIGNMENT OF BENEFITS 2022-08-29 23:03:44 Doctor Unassigned, No [facility] Name Medical Branch CONSENT/REFUSAL FOR 2022-08-29 22:27:46 Doctor Unassigned, No [facility] DIAGNOSIS AND TREATMENT Name Medical Branch ASSIGNMENT OF BENEFITS 2022-08-21 00:12:49 Doctor Unassigned, No [facility] Medical Branch CONSENT/REFUSAL FOR 2022-08-20 22:51:27 Doctor Unassigned, No Un iversity of [place] DIAGNOSIS AND TREATMENT Name Medical Branch ASSIGNMENT OF BENEFITS 2022-08-09 05:05:25 Doctor Unassigned, No [facility] Branch CT ABDOMEN PELVIS W 2022-08-09 03:45:01 Gary Levin [facility] CONTRAST Medical Branch LIPASE 2022-08-09 03:30:00 Gary Levin [facility] COMP. METABOLIC PANEL 2022-08-09 03:30:[address] [facility] ([id number]) Medical [place] CBC WITH DIFF 2022-08-09 03:30:00 Gary Levin [facility] URINALYSIS 2022-08-09 03:30:00 Gary Levin [facility] URINE DRUG (IMMUNOASSAY) 2022-08-09 03:30:00 Gary Levin [facility] DRUG Medical [facility] nc SCREEN W/O REFLEX CONSENT/REFUSAL FOR 2022-08-09 02:05:28 Doctor Unassigned, No Un [facility] of [place] DIAGNOSIS AND TREATMENT Name Medical Branch ASSIGNMENT OF BENEFITS 2022-07-30 00:15:37 Doctor Unassigned, No [facility] NOTICE OF PRIVACY 2022-07-30 00:00:08 Doctor Unassigned, No Univ [facility] PRACTICES [facility] Medical Branch CONSENT/REFUSAL FOR 2022-07-29 23:40:29 [facility] Name Medical [place] Encounters Start End Encounter Admission Attending Care Care Encounter Source Date/Time Date/Time Type Type Clinicians Facility Department ID 2022-08-29 2022-08-29 Emergency X MEGHANA [facility] ERT [id number] Univers 17:33:00 20:31:00 NATHALIE devlin [facility] 2022-08-29 2022-08-29 Emergency Meghana [facility] [id number] Univers 17:33:00 20:31:00 Nathalie [facility] [id number] cluas [facility] [id number] [facility] [id number] [address] 2022-08-20 2022-08-20 Emergency X COY, [facility] ERT [id number] Univers 18:12:00 22:38:00 JUAN LUIS itmillie [facility] 2022-08-20 2022-08-20 [facility] [id number] Univers 18:12:00 22:38:00 Juan Luis [facility] [id number] i ty of [place] [id number] [facility] [id number] [address] 2022-08-08 2022-08-09 Emergency [facility] [id number] Univers 21:20:00 00:18:00 GARY [facility] 2022-08-08 2022-08-09 Emergency [facility] [id number] Univers 21:20:00 00:18:00 Gary [facility] [id number] i ty of [place] 4.2.7.2.686 [facility] [id number] [address] 2022-07-29 2022-07-29 Emergency X RIDJODI, [facility] ERT [id number] Univers 19:15:00 19:44:00 LUCAS pinto [facility] 2022-07-29 2022-07-29 [facility] [id number] Univers 19:15:00 19:44:00 Lucas [facility] [id number] ity [facility] [id number] [facility] [id number] [address] Results Test Description Test Time Test Comments Results Result Comments Source COMP. METABOLIC PANEL (24926) 2022-08-09 04:03:38 Test Item Value Reference Range Interpretation Comme nts NA (test code = 4163125572) 140 mmol/L 135-145 K (test code = 6746994922) 4.3 mmol/L 3.5-5.0 CL (test code = 0961792100) 103 mmol/L 98-108 CO2 TOTAL (test code = 9011191171) 28 mmol/L 23-31 AGAP (test code = 1843285198) 9 2-16 BUN (test code = 5615674737) 6 mg/dL 7-23 L GLUCOSE (test code = 1866625857) 88 mg/dL 70-110 CREATININE (test code = 0.78 mg/dL 0.60-1.25 5045314135) TOTAL BILI (test code = 0.9 mg/dL 0.1-1.4 7747949128) CALCIUM (test code = 0084606871) 9.4 mg/dL 8.6-10.6 T PROTEIN (test code = 9140888675) 7.3 g/dL 6.3-8.2 ALBUMIN (test code = 9058135013) 4.2 g/dL 3.5-5.0 ALK PHOS (test code = 5778198612) 66 U/L 34-122 ALTv (test code = 1742-6) 17 U/L 5-50 AST(SGOT) (test code = 5234321029) 23 U/L 13-40 eGFR (test code = 8916576537) 126.9 mL/min/1.73m2 LUAN (test code = LUAN) [...] tests). Lab Interpretation (test code = Abnormal 36397-0) [facility] Test Item Value Reference Range Interpretation Comments LIPASE (test code = 2729652362) 43 U/L 0-220 Lab Interpretation (test code = Normal 97824-3) [id number] 03:58:21 Test Item Value Reference Range Interpretation Comments WBC (test code = 6.59 See_Comment [Automated 2290-2) message] The sy stem which generated this result transmitted reference range : 4.20 - 10.70 10*3/?L. The reference range was not used to interpret this result as normal/abnormal . RBC (test code = 5.44 See_Comment [Automated 489-8) message] The sy stem which generated this [...] RDW-SD (test code = 41.9 fL 38.5-51.6 69538-7) RDW-CV (test code = 12.9 % 12.1-15.4 788-0) PLT (test code = 329 See_Comment H [Automated 767-3) message] The sy stem which generated this result transmitted reference range : 150 - 328 10*3/ ?L. The reference r manuel was not used to interpret this result as normal/abnormal . MPV (test code = 9.7 fL 9.8-13.0 L 49939-8) NRBC/100 WBC (test 0.0 See_Comment [Automat ed code = 4726433767) message] The system which generated this result transmitted reference range : 0.0 - 10.0 /100 WBCs. The refer ence range was not u sed to interpret th is result as normal/abnormal . NRBC x10^3 (test code See_Comment [Auto mated = 7621355142) message] The s ystem which generated this result transmitted reference range : 10*3/?L. The reference range was not used to interpret this result as normal/abnormal . GRAN MAT (NEUT) % 54.5 % (test code = 770-8) IMM GRAN % (test code 0.20 % = 5807820227) LYMPH % (test code = 37.2 % 736-9) MONO % (test code = 5.6 % 5905-5) EOS % (test code = 2.0 % 713-8) BASO % (test code = 0.5 % 706-2) GRAN MAT x10^3(ANC) 3.60 10*3/uL 1.99-6.95 (test code = 5620012599) IMM GRAN x10^3 (test 0.00-0.06 code = 4999288595) LYMPH x10^3 (test code 2.45 10*3/uL 1.09-3.23 = 731-0) MONO x10^3 (test code 0.37 10*3/uL 0.36-1.02 = 742-7) EOS x10^3 (test code = 0.13 10*3/uL 0.06-0.53 711-2) BASO x10^3 (test code 0.03 10*3/uL 0.01-0.09 = 704-7) Lab Interpretation Abnormal (test code = 75221-6) [facility]"
[2023-01-21] MEDS ORDERED: ONDANSETRON 4 MG (ODT) TAB ONE (14:18)
[2023-01-21 14:40] LABS: SARS-CoV-2 Antigen Rapid Res Negative (Negative)
--- NOTE | 2023-01-21 14:52 | ER ---
Nurse's Notes [facility] Name: Tobias Isabel Age: 22 yrs Sex: Male : 2000 Arrival Date: 01/21/2023 Time: 13:44 Bed IW1 Private MD: Diagnosis: Acute upper respiratory infection, unspecified Presentation: 01/21 14:01 Chief complaint: Patient states: flu like symptoms for almost 2 weeks. PT also reports cm10 that he has been feeling nauseous and vomits in the mornings. Coronavirus screen: Vaccine status: Patient reports being unvaccinated. Client denies travel out of the [place] in the last 14 days. Ebola Screen: Patient denies travel to an Ebola-affected area in the 21 days before illness onset. No symptoms or risks identified at this time. Initial Sepsis Screen: Does the patient meet any 2 criteria? No. Patient's initial sepsis screen is negative. Does the patient have a suspected source of infection? No. Patient's initial sepsis screen is negative. Risk Assessment: Do you want to hurt yourself or someone else? Patient reports no desire to harm self or others. Onset of symptoms was January 21, 2023. 14:01 Method Of Arrival: Ambulatory cm10 14:01 Acuity: MYRNA 3 cm10 Triage Assessment: 14:02 General: Appears in no apparent distress. comfortable, Behavior is calm, cooperative. cm10 15:03 Pain: Denies pain. ll1 Historical: - Allergies: 14:02 No Known Allergies; cm10 - PMHx: 14:02 ADD/ADHD; cm10 - Immunization history:: Adult Immunizations up to date. - Social history:: Smoking status: Patient reports the use of cigarette tobacco products, denies chronic smoking, but will smoke occasionally. Screenin:02 [facility] ED Fall Risk Assessment (Adult) Score/Fall Risk Level 0 - 2 = Low Risk ll1 Oriented to surroundings, Maintained a safe environment, Educated pt \T\ family on fall prevention, incl call for assistance when getting out of bed, Hourly rounding (assess needs \T\ fall precautionary measures) done. Abuse screen: Denies threats or abuse. Nutritional screening: No deficits noted. Tuberculosis screening: No symptoms or risk factors identified. Assessment: 15:02 Reassessment: No changes from previously documented assessment. Patient and/or family ll1 updated on plan of care and expected duration. Pain level reassessed. Patient is alert, oriented x 3, equal unlabored respirations, skin warm/dry/pink. Vital Signs: 14:01 BP 133 / 72; Pulse 61; Resp 18; Temp 97.3; Pulse Ox 97% ; Weight 61.23 kg; Height 5 ft. cm10 11 in. ; Pain 4/10; 14:01 Body Mass Index 18.83 (61.23 kg, 180.34 cm) cm10 14:01 Pain Scale: Adult cm10 ED Course: 13:48 Patient arrived in ED. mg5 13:48 [facility]onal[facility] Doran FNP [facility] 13:48 Zack Ramsay MD is Attending Physician. [facility] 14:02 Triage completed. 10 14:02 Arm band placed on Patient placed in an exam room, on a stretcher. cm10 14:09 SARS RAPID Sent. cm10 14:09 Flu Sent. cm10 15:02 No provider procedures requiring assistance completed. Patient did not have IV access ll1 during this emergency room visit. 15:03 Patient has correct armband on for positive identification. Bed in low position. Call ll1 light in reach. Provided Education on: n/a. Administered Medications: 14:09 Drug: Ondansetron Oral Disintegrating Tablet Oral Disintegrating Tablet 4 mg PO once cm10 Route: PO; 15:03 Follow up: Response: No adverse reaction ll1 Medication: 15:03 VIS not applicable for this client. 1 Outcome: 14:51 Discharge ordered by . [facility] 15:02 Discharged to home ambulatory, 1 15:02 Condition: stable 15:02 Discharge instructions given to patient, Instructed on discharge instructions, follow up and referral plans. medication usage, Demonstrated understanding of instructions, follow-up care, medications, Prescriptions given X 2, 15:03 Patient left the ED. 1 Signatures: Suzanne Gardner RN RN 1 Sonali Doran FNP FNP Rosey Painter RN RN 10 Alexus Hernandez mg5
--- NOTE | 2023-01-21 14:52 | EDPHYS ---
Physician Documentation [facility] Name: Tobias Isabel Age: 22 yrs Sex: Male : 2000 Arrival Date: 01/21/2023 Time: 13:44 Bed IW1 Private MD: ED Physician Zack Ramsay HPI: 01/21 13:48 This 22 yrs old Male presents to ER via Unassigned with complaints of Flu jh7 Symptoms. 13:48 Onset: The symptoms/episode began/occurred 2 week(s) ago, and became worse this jh7 morning. Associated signs and symptoms: Pertinent positives: congestion, nausea, Pertinent negatives: cough, fever, sore throat, vomiting, wheezing. Historical: - Allergies: 14:02 No Known Allergies; cm10 - PMHx: 14:02 ADD/ADHD; cm10 - Immunization history:: Adult Immunizations up to date. - Social history:: Smoking status: Patient reports the use of cigarette tobacco products, denies chronic smoking, but will smoke occasionally. ROS: 13:48 Constitutional: Negative for fever, chills, and weight loss, Eyes: Negative for injury, jh7 pain, redness, and discharge, Neck: Negative for injury, pain, and swelling, Cardiovascular: Negative for chest pain, palpitations, and edema, Respiratory: Negative for shortness of breath, cough, wheezing, and pleuritic chest pain, Back: Negative for injury and pain, MS/Extremity: Negative for injury and deformity, Skin: Negative for injury, rash, and discoloration, Neuro: Negative for headache, weakness, numbness, tingling, and seizure, 13:48 ENT: Positive for nasal discharge, 13:48 Abdomen/GI: Positive for nausea, Negative for vomiting, diarrhea, constipation, 13:48 All other systems are negative, Exam: 13:48 Constitutional: This is a well developed, well nourished patient who is awake, alert, jh7 and in no acute distress. Head/Face: Normocephalic, atraumatic. Neck: Trachea midline, no thyromegaly or masses palpated, and no cervical lymphadenopathy. Supple, full range of motion without nuchal rigidity, or vertebral point tenderness. No Meningismus. Cardiovascular: Regular rate and rhythm with a normal S1 and S2. No gallops, murmurs, or rubs. Normal PMI, no JVD. No pulse deficits. Respiratory: Lungs have equal breath sounds bilaterally, clear to auscultation and percussion. No rales, rhonchi or wheezes noted. No increased work of breathing, no retractions or nasal flaring. Back: No spinal tenderness. No costovertebral tenderness. Full range of motion. Skin: Warm, dry with normal turgor. Normal color with no rashes, no lesions, and no evidence of cellulitis. MS/ Extremity: Pulses equal, no cyanosis. Neurovascular intact. Full, normal range of motion. Neuro: Awake and alert, GCS 15, oriented to person, place, time, and situation. Motor strength 5/5 in all extremities. Sensory grossly intact. Normal gait. 13:48 ENT: Nose: nasal drainage, and is seen coming from both nares, that is white, Posterior pharynx: pooling of secretions, that are mild, Vital Signs: 14:01 BP 133 / 72; Pulse 61; Resp 18; Temp 97.3; Pulse Ox 97% ; Weight 61.23 kg; Height 5 ft. cm10 11 in. ; Pain 4/10; 14:01 Body Mass Index 18.83 (61.23 kg, 180.34 cm) cm10 14:01 Pain Scale: Adult cm10 MDM: 13:48 Patient medically screened. [facility] 14:52 Differential diagnosis: viral Infection, URI. Data reviewed: vital signs, nurses notes. [facility] I considered the following discharge prescriptions or medication management in the emergency department Medications were administered in the Emergency Department. See MAR. Counseling: I had a detailed discussion with the patient and/or guardian regarding the historical points, exam findings, and any diagnostic results supporting the discharge/admit diagnosis, to return to the emergency department if symptoms worsen or persist or if there are any questions or concerns that arise at home. Response to treatment: the patient's symptoms have mildly improved after treatment. 01/21 13:56 Order name: Flu; Complete Time: 14:50 [facility] 01/21 13:56 Order name: SARS RAPID; Complete Time: 14:50 [facility] Administered Medications: 14:09 Drug: Ondansetron Oral Disintegrating Tablet Oral Disintegrating Tablet 4 mg PO once cm10 Route: PO; 15:03 Follow up: Response: No adverse reaction ll1 Disposition: 15:05 Co-signature as Attending Physician, Zack Ramsay MD I reviewed the patient's care rt provided by the Advanced Practice Provider and agree with the diagnosis and treatment plan. Disposition Summary: 01/21/23 14:51 Discharge Ordered Notes: Location: Home [facility] Problem: new jh7 Symptoms: are unchanged jh7 Condition: Stable jh7 Diagnosis - Acute upper respiratory infection, unspecified jh7 Followup: [facility] - With: Private Physician - When: 2 - 3 days - Reason: Recheck today's complaints Discharge Instructions: - Discharge Summary Sheet 7 - Upper Respiratory Infection, Adult [facility] - Viral Respiratory Infection [facility] Forms: - Medication Reconciliation Form [facility] - Thank You Letter [facility] - Patient Portal Instructions [facility] - Leadership Thank You Letter [facility] - Work release form cm10 Prescriptions: - Bromfed DM 2-30-10 mg/5 mL Oral syrup - administer 10 milliliter ORAL route every 4-6 hours As needed as needed for jh7 cold symptoms; 240 milliliter; Refills: 0, Product Selection Permitted - ondansetron 4 mg Oral Tablet,disintegrating - take 1 tablet ORAL route every 4-6 hours As needed; 20 tablet; Refills: 0, jh7 Product Selection Permitted Signatures: Dispatcher [employer] EDSonali Ferguson, SPOT WASHER SPOT WASHER [facility] Zack Ramsay MD MD rt Rosey Hughes RN RN cm10 Suzanne Gardner RN ll1
[2023-01-21 15:51] VITALS: BP 133/72; TEMP 97.3; O2SAT 97
== END 2023-01-21 15:03 | disposition home or self-care (01) ==
LOC: ER 13:44
DX: J06.9 Acute upper respiratory infection, unspecified (principal); Z11.52 Encounter for screening for COVID-19
CPT/HCPCS: 36415; 87804; 87811; 99283; Q0162

== ENCOUNTER 2023-11-06 14:41 | Emergency (ER) | payer SELFPAY ==
[2023-11-06] MEDS ORDERED: NA CHLORIDE 0.9% 1,000 ML ONE (15:05)
[2023-11-06] MEDS ORDERED: KETOROLAC 30 MG/ML INJ ONE (15:05)
[2023-11-06 15:27] LABS: Absolute Basophils 0.1 K/uL (0-0.5); Absolute Eosinophils 0.3 K/uL (0-0.5); Absolute Lymphocytes (CBC) 2.5 K/uL (0.7-4.9); Absolute Monocytes 0.4 K/uL (0.1-1.3); Absolute Neutrophil 2.5 K/uL (1.8-8.0); Hematocrit 45.5 % (39.6-49.0); Hemoglobin 15.1 g/dL (13.6-17.9); Lymphocytes % 43.3 % (15.3-44.8); MCHC 33.2 g/dL (32.0-36.0); MCV 90.5 fL (80-100); MPV 8.3 fL (7.6-11.3); Monocytes % 6.2 % (3.3-12.3); Neutrophils % 44.5 % (41.7-73.7); Nucleated Red Blood Cells % 0.2 % (0-0); Platelets 240 thou/uL (152-406); RBC Red Blood Cell Count 5.03 M/uL (4.33-5.43); Red Cell Distribution Width 13.6 % (12.1-15.2)
[2023-11-06 15:31] LABS: Specific Gravity 1.017 (1.005-1.030); Sqamous Epithelial <5 /HPF (None Seen); Urine Bacteria None Seen /HPF (<20); Urine Bilirubin NEGATIVE (Negative); Urine Blood Negative (Negative); Urine Clarity Clear (Clear); Urine Color Colorless (Yellow); Urine Culture Reflex Order NOT NEEDED; Urine Glucose NEGATIVE (Negative); Urine Ketones NEGATIVE (Negative); Urine Microscopic Reflex YN ORDER UMIC; Urine Nitrite NEGATIVE (Negative); Urine Protein NEGATIVE (Negative); Urine RBC None Seen /HPF (None Seen); Urine Urobilinogen Normal (Normal); Urine WBC <5 /HPF (<5); Urine pH 6.5 (5.0-7.0)
[2023-11-06 15:40] LABS: SARS-CoV-2 Antigen CONTROL BLUE LINE VIS/BG OK; SARS-CoV-2 Antigen Rapid Res Negative (Negative)
[2023-11-06 15:44] LABS: Albumin 3.6 g/dL (3.4-5.0); Anion Gap 8.9 mEq/L (5.0-15.0); Bilirubin Total 0.2 mg/dL (0.2-1.0); Globulin 3.7 g/dL (2.3-3.5); Protein, Total 7.3 g/dL (6.4-8.2)
[2023-11-06 15:45] LABS: Potassium 3.9 mEq/L (3.5-5.1)
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
[2023-11-06 16:33] VITALS: TEMP 98.6
[2023-11-06 16:35] VITALS: BP 115/66; O2SAT 98
== END 2023-11-06 16:17 | disposition home or self-care (01) ==
LOC: ER 14:41
DX: S16.1XXA Strain of muscle, fascia and tendon at neck level, initial encounter (principal); R29.91 Unspecified symptoms and signs involving the musculoskeletal system; M54.50 Low back pain, unspecified; V49.49XA Driver injured in collision with other motor vehicles in traffic accident, initial encounter
CPT/HCPCS: 36415; 70450; 71260; 72125; 74177; 80053; 81001; 85025; 87804; 87811; 96361; 96374; 99285; J7030; Q9967